=== PATIENT | male | born 1945 | race Caucasian/White ===

== ENCOUNTER → 2016-10-05 | Outpatient (CLI) | payer MEDICARE, OTHER ==
[~2016-10-05] MED LIST: ASP325T PO; ASP81TEC PO; ATOR40TA PO; ATR20T PO; BEE POLLEN PO; CETI5TAB6 PO; CPR500T PO; CQ10 PO; CRAN200C PO; CRAN400T PO; DOXY-233 PO; GARL400T13 PO; LISI20TA PO; MULT-608 PO; NFPRILOC40 PO
[2016-10-05 07:54] LABS: BASOPHILS % (AUTO) 0 % (0-10); EOSINOPHILS # (AUTO) 0.2 10^3/uL (0.0-0.3); EOSINOPHILS % (AUTO) 3 % (0-10); LYMPHOCYTES # (AUTO) 1.9 X 10^3 (1.0-4.0); LYMPHOCYTES % (AUTO) 21 % (12-44); MEAN CORPUSCULAR HEMOGLOBIN 29 PG (25-34); MEAN CORPUSCULAR HGB CONC 35 G/DL (32-36); MEAN CORPUSCULAR VOLUME 82 FL (80-99); MEAN PLATELET VOLUME 11.7 FL (7.4-10.4); MONOCYTES # (AUTO) 0.9 X 10^3 (0.0-1.0); MONOCYTES % (AUTO) 10 % (0-12); NEUTROPHILS % (AUTO) 66 % (42-75); PLATELET COUNT 205 10^3/uL (130-400); RED BLOOD COUNT 5.51 10^6/uL (4.35-5.85); RED CELL DISTRIBUTION WIDTH 13.7 % (10.0-14.5)
[2016-10-05 08:17] LABS: ALBUMIN 3.8 G/DL (3.2-4.5); BILIRUBIN,TOTAL 0.8 MG/DL (0.1-1.0); CALCIUM 8.9 MG/DL (8.5-10.1); CREATININE SERUM 1.48 MG/DL (0.60-1.30); POTASSIUM 4.2 MMOL/L (3.6-5.0); TOTAL PROTEIN 6.8 G/DL (6.4-8.2)
[2016-10-05 08:38] LABS: THYROID STIMULATING HORMONE 2.39 UIU/ML (0.35-4.94)
== END ==
LOC: LAB 07:42
PROVIDERS: ATTEND Family Medicine
DX: E78.5 Hyperlipidemia, unspecified (principal); E03.9 Hypothyroidism, unspecified; R53.83 Other fatigue; I25.10 Atherosclerotic heart disease of native coronary artery without angina pectoris
CPT/HCPCS: 36415; 80053; 80061; 84439; 84443; 85025

== ENCOUNTER → 2016-10-16 | Outpatient (CLI) | payer MEDICARE, OTHER ==
--- NOTE | 2016-10-16 15:53 | Diagnostic Imaging Report ---
Retroperitoneal ultrasound. INDICATION: R80.9. History of left nephrectomy for renal tumor. FINDINGS: The left kidney is absent with no mass at the nephrectomy bed. The right kidney is 12 cm in length. No hydronephrosis or focal lesion. The urinary bladder is not seen as it is empty. IMPRESSION: Unremarkable exam. Dictated by: Dictated on workstation # [id number]
== END ==
LOC: RAD 13:52
PROVIDERS: ATTEND Family Medicine
DX: R80.9 Proteinuria, unspecified (principal); Z90.5 Acquired absence of kidney
CPT/HCPCS: 76770

== ENCOUNTER → 2017-03-13 | Outpatient (CLI) | payer MEDICARE, OTHER ==
[2017-03-13 07:42] LABS: ALBUMIN 3.8 GM/DL (3.2-4.5); BILIRUBIN,TOTAL 0.9 MG/DL (0.1-1.0); CALCIUM 9.3 MG/DL (8.5-10.1); CREATININE SERUM 1.31 MG/DL (0.60-1.30)
== END ==
LOC: LAB 06:51
PROVIDERS: ATTEND Physician Assistant
DX: I10 Essential (primary) hypertension (principal); E78.2 Mixed hyperlipidemia; I44.4 Left anterior fascicular block; I34.0 Nonrheumatic mitral (valve) insufficiency
CPT/HCPCS: 36415; 80053; 80061

== ENCOUNTER 2017-06-10 05:39 | Outpatient (CLI) | payer MEDICARE, OTHER ==
[~2017-06-10] VITALS: Ht 188 cm; Wt 103.4 kg
[2017-06-10] MEDS ORDERED: ASPI-999 PO (13:30)
[2017-06-10] MEDS ORDERED: METO50TA2 PO (13:30)
[2017-06-10] MEDS ORDERED: AMLO10TA2 PO (13:30)
== END 2017-06-10 13:31 ==
LOC: PREOP 05:39
PROVIDERS: ATTEND Surgery
DX: Z01.818 Encounter for other preprocedural examination (principal); Z80.0 Family history of malignant neoplasm of digestive organs

== ENCOUNTER 2017-06-14 09:18 | Day surgery (SDC) | payer MEDICARE, OTHER ==
[~2017-06-14] VITALS: Ht 188 cm; Wt 103.4 kg
[~2017-06-14 09:18] MED LIST changes: +AMLO10TA2 PO; +ASPI-999 PO; +METO50TA15 PO
--- OUTSIDE RECORDS SUMMARY | 2017-06-14 09:22 | XMS REPORT ---
Author REENA Rizzo Organization [employer] Address Unknown Phone Unavailable Care Team Providers Care Senior Operations Manager Name Role Phone REENA LAUGHLIN CP Unavailable Allergies No Known Allergies Problems Problem Type Condition Code Onset Dates Condition Status Assessment Adjustment disorder with anxiety F43.22 Active Medications No Known Medications Procedures Procedure Coding System Code Date Psychotherapy, patient &/family, 30 minutes, established patient CPT-4 66529 January 19, 2016 Results No Known Results Summary Purpose [employer] Submission
--- OUTSIDE RECORDS SUMMARY | 2017-06-14 09:23 | XMS REPORT | Continuity of Care Document ---
Author Author [facility] Organization [facility] Address Unknown Phone Unavailable Allergies Active Description Code Type Severity Reaction Onset Reported/Identified Relationship to Patient Clinical Status Yes Adhesive Bandage [id number] Drug Allergy Unknown SORES 06/10/2017 Medications Problems Date Dx Coded Attending Type Code Diagnosis Diagnosed By 06/20/2012 Ot 211.3 06/20/2012 Ot 455.0 06/20/2012 Ot 562.10 06/20/2012 Ot V76.51 12/24/2014 Ot 786.09 12/24/2014 Ot 786.2 12/24/2014 Ot 789.09 12/24/2014 Ot V10.46 12/24/2014 Ot 789.00 12/24/2014 Ot 272.4 12/24/2014 Ot 401.9 12/24/2014 GINA GAVIRIA, HILARIO Foreman Ot 272.4 12/24/2014 GINA GAVIRIA, HILARIO Foreman Ot 401.9 12/24/2014 GINA GAVIRIA, HILARIO Foreman Ot 426.2 12/24/2014 GINA GAVIRIA, HILARIO Foreman Ot 429.9 12/24/2014 VINCENTNDER DO, MAUREEN S Ot 272.4 12/24/2014 FLORENTINER YAO TILLMANMAUREEN S Ot 401.9 12/24/2014 YAO ROBLES DOQUELINE S Ot V70.0 12/28/2014 COSENS DO, AUBREY L Ot 715.35 12/28/2014 COSENS DO, AUBREY L Ot 724.2 01/03/2015 COSENS DO, AUBREY L Ot 715.35 01/03/2015 COSENS DO, AUBREY L Ot 724.2 01/04/2015 COSENS DO, AUBREY L Ot 715.35 01/04/2015 COSENS DO, AUBREY L Ot 724.2 01/05/2015 Ot 786.09 01/05/2015 Ot 786.2 01/05/2015 Ot 789.09 01/05/2015 Ot V10.46 01/05/2015 Ot 789.00 01/05/2015 Ot 272.4 01/05/2015 Ot 401.9 01/05/2015 HILARIO FUENTES MD Ot 272.4 01/05/2015 GINA GAVIRIA, HILARIO Foreman Ot 401.9 01/05/2015 HILARIO FUENTES MD Ot 426.2 01/05/2015 HILARIO FUENTES MD Ot 429.9 01/05/2015 ORENDER DO, MAUREEN S Ot 272.4 01/05/2015 ORENDER DO, MAUREEN S Ot 401.9 01/05/2015 ORENDER DO, MAUREEN S Ot V70.0 01/05/2015 AUBREY AGUILAR DO Ot 715.35 01/05/2015 AUBREY AGUILAR DO Ot 724.2 01/05/2015 CINTHIA VALDEZ MD Ot 453.40 01/11/2015 CINTHIA VALDEZ MD Ot 724.02 01/12/2015 AUBREY AGUILAR DO Ot 715.35 01/12/2015 AUBREY AGUILAR DO Ot 724.2 01/12/2015 CINTHIA VALDEZ MD Ot 724.02 01/13/2015 AUBREY AGUILAR DO Ot 715.35 01/13/2015 AUBREY AGUILAR DO Ot 724.2 01/21/2015 CINTHIA VALDEZ MD Ot 453.40 01/27/2015 CINTHIA VALDEZ MD Ot 724.02 04/06/2015 CINTHIA VALDEZ MD Ot V57.1 PHYSICAL THERAPY NEC 04/06/2015 CINTHIA VALDEZ MD Ot V58.49 OTHER SPECIFIED AFTERCARE FOLLOWING SURG 04/11/2015 CINTHIA VALDEZ MD Ot V57.1 04/11/2015 CINTHIA VALDEZ MD, Ot V58.49 04/22/2015 CINTHIA VALDEZ MD Ot M54.5 LOW BACK PAIN 05/19/2015 HILARIO FUENTES MD Ot E78.2 05/19/2015 HILARIO FUENTES MD Ot I10 05/19/2015 HILARIO FUENTES MD Ot R07.89 05/19/2015 HILARIO FUENTES MD Ot R09.89 11/21/2015 COURTNEY GAVIRIA, CINTHIA Foreman Ot 724.02 SPINAL STENOSIS, LUMBAR REG, W/OUT NEURO 11/21/2015 HILARIO FUENTES MD Ot E78.2 MIXED HYPERLIPIDEMIA 11/21/2015 HILARIO FUENTES MD Ot I10 ESSENTIAL (PRIMARY) HYPERTENSION 11/21/2015 HILARIO FUENTES MD Ot R07.89 OTHER CHEST PAIN 11/21/2015 HILARIO FUENTES MD Ot R09.89 OTH SYMPTOMS AND SIGNS INVOLVING THE CIR 11/23/2015 HILARIO FUENTES MD Ot E78.2 MIXED HYPERLIPIDEMIA 11/23/2015 HILARIO FUENTES MD Ot I10 ESSENTIAL (PRIMARY) HYPERTENSION 11/23/2015 HILARIO FUENTES MD Ot 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 11/23/2015 HILARIO FUENTES MD Ot R07.89 OTHER CHEST PAIN 11/24/2015 HILARIO FUENTES MD Ot E78.2 MIXED HYPERLIPIDEMIA 11/24/2015 HILARIO FUENTES MD Ot I10 ESSENTIAL (PRIMARY) HYPERTENSION 11/24/2015 HILARIO FUENTES MD Ot 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 11/24/2015 HILARIO FUENTES MD Ot R07.89 OTHER CHEST PAIN 11/24/2015 HILARIO FUENTES MD Ot E78.2 MIXED HYPERLIPIDEMIA 11/24/2015 HILARIO FUENTES MD Ot I10 ESSENTIAL (PRIMARY) HYPERTENSION 11/24/2015 HILARIO FUENTES MD Ot 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 11/24/2015 HILARIO FUENTES MD Ot R07.89 OTHER CHEST PAIN 12/12/2015 HILARIO FUENTES MD Ot E78.2 MIXED HYPERLIPIDEMIA 12/12/2015 HILARIO FUENTES MD Ot I10 ESSENTIAL (PRIMARY) HYPERTENSION 12/12/2015 HILARIO FUENTES MD Ot 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 12/12/2015 HILARIO FUENTES MD Ot R07.89 OTHER CHEST PAIN 12/12/2015 HILARIO FUENTES MD Ot E78.2 MIXED HYPERLIPIDEMIA 12/12/2015 HILARIO FUENTES MD Ot I10 ESSENTIAL (PRIMARY) HYPERTENSION 12/12/2015 HILARIO FUENTES MD Ot 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 12/12/2015 GINA GAVIRIA, HILARIO Foreman Ot R07.89 OTHER CHEST PAIN 10/05/2016 ORENDER DO, MAUREEN S Ot E03.9 HYPOTHYROIDISM, UNSPECIFIED 10/05/2016 ORENDER DO, MAUREEN S Ot E78.5 HYPERLIPIDEMIA, UNSPECIFIED 10/08/2016 ORENDER DO, MAUREEN S Ot E03.9 HYPOTHYROIDISM, UNSPECIFIED 10/08/2016 ORENDER DO, MAUREEN S Ot E78.5 HYPERLIPIDEMIA, UNSPECIFIED 10/08/2016 ORENDER DO, MAUREEN S Ot I25.10 ATHSCL HEART DISEASE OF [place] CORONARY 10/08/2016 ORENDER DO, MAUREEN S Ot R53.83 OTHER FATIGUE 10/16/2016 ORENDER DO, MAUREEN S Ot E03.9 HYPOTHYROIDISM, UNSPECIFIED 10/16/2016 ORENDER DO, MAUREEN S Ot E78.5 HYPERLIPIDEMIA, UNSPECIFIED 10/16/2016 ORENDER DO, MAUREEN S Ot I25.10 ATHSCL HEART DISEASE OF [place] CORONARY 10/16/2016 ORENDER DO, MAUREEN S Ot R53.83 OTHER FATIGUE 10/16/2016 ORENDER DO, MAUREEN S Ot E03.9 HYPOTHYROIDISM, UNSPECIFIED 10/16/2016 ORENDER DO, MAUREEN S Ot E78.5 HYPERLIPIDEMIA, UNSPECIFIED 10/16/2016 ORENDER DO, MAUREEN S Ot I25.10 ATHSCL HEART DISEASE OF [place] CORONARY 10/16/2016 ORENDER DO, MAUREEN S Ot R53.83 OTHER FATIGUE 10/29/2016 ORENDER DO, MAUREEN S Ot E03.9 HYPOTHYROIDISM, UNSPECIFIED 10/29/2016 ORENDER DO, MAUREEN S Ot E78.5 HYPERLIPIDEMIA, UNSPECIFIED 10/29/2016 ORENDER DO, MAUREEN S Ot I25.10 ATHSCL HEART DISEASE OF [place] CORONARY 10/29/2016 ORENDER DO, MAUREEN S Ot R53.83 OTHER FATIGUE 11/06/2016 ORENDER DO, MAUREEN S Ot R80.9 PROTEINURIA, UNSPECIFIED 11/06/2016 ORENDER DO, MAUREEN S Ot Z90.5 ACQUIRED ABSENCE OF KIDNEY 02/14/2017 ORENDER DO, MAUREEN S Ot E03.9 HYPOTHYROIDISM, UNSPECIFIED 02/14/2017 ORENDER DO, MAUREEN S Ot E78.5 HYPERLIPIDEMIA, UNSPECIFIED 02/14/2017 ORENDER DO, MAUREEN S Ot I25.10 ATHSCL HEART DISEASE OF [place] CORONARY 02/14/2017 ORENDER DO, MAUREEN S Ot R53.83 OTHER FATIGUE 02/14/2017 ORENDER DO, MAUREEN S Ot R80.9 PROTEINURIA, UNSPECIFIED 02/14/2017 ORENDER DO, MAUREEN S Ot Z90.5 ACQUIRED ABSENCE OF KIDNEY 03/13/2017 ORENDER DO, MAUREEN S Ot E03.9 HYPOTHYROIDISM, UNSPECIFIED 03/13/2017 ORENDER DO, MAUREEN S Ot E78.5 HYPERLIPIDEMIA, UNSPECIFIED 03/13/2017 ORENDER DO, MAUREEN S Ot I25.10 ATHSCL HEART DISEASE OF [place] CORONARY 03/13/2017 ORENDER DO, MAUREEN S Ot R53.83 OTHER FATIGUE 03/13/2017 ORENDER DO, MAUREEN S Ot R80.9 PROTEINURIA, UNSPECIFIED 03/13/2017 ORENDER DO, MAUREEN S Ot Z90.5 ACQUIRED ABSENCE OF KIDNEY 03/13/2017 RON RICHARDSON Ot I10 ESSENTIAL (PRIMARY) HYPERTENSION 03/14/2017 RON RICHARDSON Ot E78.2 MIXED HYPERLIPIDEMIA 03/14/2017 RON RICHARDSON Ot I10 ESSENTIAL (PRIMARY) HYPERTENSION 03/14/2017 RON RICHARDSON Ot I34.0 NONRHEUMATIC MITRAL (VALVE) INSUFFICIENC 03/14/2017 RON RICHARDSON Ot 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 04/03/2017 RON RICHARDSON Ot E78.2 MIXED HYPERLIPIDEMIA 04/03/2017 RON RICHARDSON Ot I10 ESSENTIAL (PRIMARY) HYPERTENSION 04/03/2017 RON RICHARDSON Ot I34.0 NONRHEUMATIC MITRAL (VALVE) INSUFFICIENC 04/03/2017 RON RICHARDSON Ot 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 04/23/2017 VINCENTNDER DO, MAUREEN S Ot R80.9 PROTEINURIA, UNSPECIFIED 04/23/2017 ORENDER DO, MAUREEN S Ot Z90.5 ACQUIRED ABSENCE OF KIDNEY 06/10/2017 SEAN KITCHEN MD, Ot Z01.818 ENCOUNTER FOR OTHER PREPROCEDURAL EXAMIN 06/10/2017 SEAN KITCHEN MD, Ot Z80.0 FAMILY HISTORY OF MALIGNANT NEOPLASM OF 06/11/2017 SEAN KITCHEN MD, Ot Z01.818 ENCOUNTER FOR OTHER PREPROCEDURAL EXAMIN 06/11/2017 SEAN KITCHEN MD, Ot Z80.0 FAMILY HISTORY OF MALIGNANT NEOPLASM OF 06/12/2017 ORENDER DO, MAUREEN S Ot E03.9 HYPOTHYROIDISM, UNSPECIFIED 06/12/2017 ORENDER DO, MAUREEN S Ot E78.5 HYPERLIPIDEMIA, UNSPECIFIED 06/12/2017 ORENDER DO, MAUREEN S Ot I25.10 ATHSCL HEART DISEASE OF [place] CORONARY 06/12/2017 VINCENTNDER DO, MAUREEN S Ot R53.83 OTHER FATIGUE 06/12/2017 ORENDER DO, MAUREEN S Ot R80.9 PROTEINURIA, UNSPECIFIED 06/12/2017 ORENDER DO, MAUREEN S Ot Z90.5 ACQUIRED ABSENCE OF KIDNEY 06/12/2017 RON RICHARDSON Ot E78.2 MIXED HYPERLIPIDEMIA 06/12/2017 RON RICHARDSON Ot I10 ESSENTIAL (PRIMARY) HYPERTENSION 06/12/2017 RON RICHARDSON Ot I34.0 NONRHEUMATIC MITRAL (VALVE) INSUFFICIENC 06/12/2017 RON RICHARDSON Ot 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 Procedures Results Test Result Range Complete blood count (CBC) with automated white blood cell (WBC) differential - 10/05/16 07:51 Blood leukocytes automated count (number/volume) 9.0 10*3/ uL 4.3-11.0 Blood erythrocytes automated count (number/volume) 5.51 10*6 /uL 4.35-5.85 Venous blood hemoglobin measurement (mass/volume) 15.7 g/dL 13.3-17.7 Blood hematocrit (volume fraction) 45 % 40-54 Automated erythrocyte mean corpuscular volume 82 [foz_us] 80-99 Automated erythrocyte mean corpuscular hemoglobin (mass per erythrocyte) 29 pg 25-34 Automated erythrocyte mean corpuscular hemoglobin concentration measurement ( mass/volume) 35 g/dL 32-36 Automated erythrocyte distribution width ratio 13.7 % 10.0-14.5 Automated blood platelet count (count/volume) 205 10*3/uL 130-400 Automated blood platelet mean volume measurement 11.7 [foz_ us] 7.4-10.4 Automated blood neutrophils/100 leukocytes 66 % 42-75 Automated blood lymphocytes/100 leukocytes 21 % 12-44 Blood monocytes/100 leukocytes 10 % 0-12 Automated blood eosinophils/100 leukocytes 3 % 0-10 Automated blood basophils/100 leukocytes 0 % 0-10 Blood neutrophils automated count (number/volume) 6.0 10*3 1.8-7.8 Blood lymphocytes automated count (number/volume) 1.9 10*3 1.0-4.0 Blood monocytes automated count (number/volume) 0.9 10*3 0.0-1.0 Automated eosinophil count 0.2 10*3/uL 0.0-0.3 Automated blood basophil count (count/volume) 0.0 10*3/uL 0.0-0.1 Comprehensive metabolic panel - 10/05/16 07:51 Serum or plasma sodium measurement (moles/volume) 139 mmol/ L 135-145 Serum or plasma potassium measurement (moles/volume) 4.2 mmol/L 3.6-5.0 Serum or plasma chloride measurement (moles/volume) 109 mmol /L 98-107 Carbon dioxide 23 mmol/L 21-32 Serum or plasma anion gap determination (moles/volume) 7 mmol/L 5-14 Serum or plasma urea nitrogen measurement (mass/volume) 14 mg/dL 7-18 Serum or plasma creatinine measurement (mass/volume) 1.48 mg /dL 0.60-1.30 Serum or plasma urea nitrogen/creatinine mass ratio 9 NRG Serum or plasma creatinine measurement with calculation of estimated glomerular filtration rate 47 NRG Serum or plasma glucose measurement (mass/volume) 96 mg/dL 70-105 Serum or plasma calcium measurement (mass/volume) 8.9 mg/dL 8.5-10.1 Serum or plasma total bilirubin measurement (mass/volume) 0.8 mg/dL 0.1-1.0 Serum or plasma alkaline phosphatase measurement (enzymatic activity/volume) 93 U/L 40-136 Serum or plasma aspartate aminotransferase measurement (enzymatic activity/ volume) 19 U/L 5-34 Serum or plasma alanine aminotransferase measurement (enzymatic activity/volume ) 27 U/L 0-55 Serum or plasma protein measurement (mass/volume) 6.8 g/dL 6.4-8.2 Serum or plasma albumin measurement (mass/volume) 3.8 g/dL 3.2-4.5 Lipid 1996 panel - 10/05/16 07:51 Serum or plasma triglyceride measurement (mass/volume) 203 mg/dL <150 Serum or plasma cholesterol measurement (mass/volume) 205 mg /dL < 200 Serum or plasma cholesterol in HDL measurement (mass/volume) 30 mg/dL 40-60 Cholesterol in LDL [mass/volume] in serum or plasma by direct assay 135 mg/dL 1-129 Serum or plasma cholesterol in VLDL measurement (mass/volume) 41 mg/dL 5-40 THYROID STIMULATING HORMONE - 10/05/16 07:51 THYROID STIMULATING HORMONE 2.39 u[iU]/mL 0.35-4.94 Serum or plasma thyroxine (T4) free measurement (mass/volume) - 10/05/16 07:51 Serum or plasma thyroxine (T4) free measurement (mass/volume) 0.97 ng/dL 0.70-1.48 Comprehensive metabolic panel - 03/13/17 07:09 Serum or plasma sodium measurement (moles/volume) 141 mmol/ L 135-145 Serum or plasma potassium measurement (moles/volume) 4.0 mmol/L 3.6-5.0 Serum or plasma chloride measurement (moles/volume) 109 mmol /L 98-107 Carbon dioxide 21 mmol/L 21-32 Serum or plasma anion gap determination (moles/volume) 11 mmol/L 5-14 Serum or plasma urea nitrogen measurement (mass/volume) 21 mg/dL 7-18 Serum or plasma creatinine measurement (mass/volume) 1.31 mg /dL 0.60-1.30 Serum or plasma urea nitrogen/creatinine mass ratio 16 NRG Serum or plasma creatinine measurement with calculation of estimated glomerular filtration rate 54 NRG Serum or plasma glucose measurement (mass/volume) 91 mg/dL 70-105 Serum or plasma calcium measurement (mass/volume) 9.3 mg/dL 8.5-10.1 Serum or plasma total bilirubin measurement (mass/volume) 0.9 mg/dL 0.1-1.0 Serum or plasma alkaline phosphatase measurement (enzymatic activity/volume) 97 U/L 40-136 Serum or plasma aspartate aminotransferase measurement (enzymatic activity/ volume) 22 U/L 5-34 Serum or plasma alanine aminotransferase measurement (enzymatic activity/volume ) 25 U/L 0-55 Serum or plasma protein measurement (mass/volume) 7.0 g/dL 6.4-8.2 Serum or plasma albumin measurement (mass/volume) 3.8 g/dL 3.2-4.5 Lipid 1996 panel - 03/13/17 07:09 Serum or plasma triglyceride measurement (mass/volume) 164 mg/dL <150 Serum or plasma cholesterol measurement (mass/volume) 195 mg /dL < 200 Serum or plasma cholesterol in HDL measurement (mass/volume) 36 mg/dL 40-60 Cholesterol in LDL [mass/volume] in serum or plasma by direct assay 138 mg/dL 1-129 Serum or plasma cholesterol in VLDL measurement (mass/volume) 33 mg/dL 5-40 Encounters ACCT No. Visit Date/Time Discharge Status Pt. Type Provider Facility Loc./Unit Complaint [id number] 06/10/2017 05:39:00 2016 13:31:00 DIS Outpatient SEAN KITCHEN MD [facility] PREOP COLO [id number] 03/13/2017 06:51:00 2016 23:59:59 CLS Outpatient RON RICHARDSON [facility] LAB I10 E78.2 I44.4 [id number] 10/16/2016 13:52:00 2016 23:59:59 CLS Outpatient MAUREEN ROBLES DO S [facility] RAD R80.9 [id number] 10/05/2016 07:42:00 2016 23:59:59 CLS Outpatient MAUREEN ROBLES DO S [facility] LAB HYPERLIPIDEMIA,HTN,FATIGUE [id number] 11/23/2015 08:06:00 2015 23:59:59 CLS Outpatient HILARIO FUENTES MD [facility] CARD [id number] 11/21/2015 14:37:00 2015 23:59:59 CLS Outpatient HILARIO FUENTES MD [facility] CARD [id number] 05/03/2015 08:24:00 2014 23:59:59 CLS Outpatient HILARIO FUENTES MD [facility] LAB [id number] 04/14/2015 08:01:00 2014 23:59:59 CLS [id number] 04/06/2015 16:15:00 2014 00:01:00 DIS Outpatient [facility] [id number] 01/26/2015 12:15:00 2014 23:59:59 CLS Preadmit AUBREY AGUILAR DO [facility] REHAB [id number] 01/07/2015 08:39:00 2014 23:59:59 CLS Outpatient CINTHIA VALDEZ MD [facility] RAD [id number] 01/03/2015 16:53:00 2014 23:59:59 CLS Outpatient CINTHIA VALDEZ MD [facility] RAD [id number] 12/24/2014 08:19:00 2014 23:59:59 CLS Outpatient AUBREY AGUILAR DO [facility] RAD [id number] 11/13/2013 09:08:00 2013 23:59:59 CLS Outpatient MAUREEN ROBLES DO [facility] LAB [id number] 11/13/2013 09:04:00 2013 23:59:59 CLS Outpatient HILARIO FUENTES MD [facility] CARD [id number] 06/14/2017 12:45:00 PEN Preadmit SEAN KITCHEN MD [facility] ENDO FAMILY HX COLON CA [id number] 07/18/2012 05:59:00 Document Registration [id number] 07/11/2012 09:12:00 Document Registration [id number] 07/03/2012 15:28:00 Document Registration [id number] 06/20/2012 10:28:00 Document Registration
[2017-06-14] MEDS ORDERED: NS IV 500 ML 500 ML IV PRN (09:31)
[2017-06-14] MEDS ORDERED: NS IV 500 ML 500 ML ONE (09:35)
[2017-06-14 09:44] VITALS: BP 125/65
[2017-06-14] MEDS ORDERED: LIDOCAINE JELLY 2% (XYLOCAINE) 5 ML TUBE MM PRN (09:45)
[2017-06-14] MEDS: MIDAZOLAM 2 MG/2 ML (VERSED) VIAL IVP PRN ×2 (11:14→11:38)
--- NOTE | 2017-06-14 11:19 | Conscious Sedation/ASA ---
Conscious Sedation Pre-Proced Time Reviewed: 10:30 ASA Class: 2 Airway Mallampati Classification: ([place] appropriate class) I. II. III, IV Lungs Heart ASA score ASA 1: a normal healthy patient ASA 2: a patient with a mild systemic disease (mid diabetes, controlled hypertension, obesity ASA 3: a patient with a severe systemic disease that limits activity (angina , COPD, prior Myocardial infarction) ASA 4: a patient with an incapacitating disease that is a constant threat to life (CHF, renal failure) ASA 5: a moribund patient not expected to survive 24 hrs. (ruptured aneurysm) ASA 6: a declared brain patient whose organs are being harvested. For emergent operations, add the letter E after the classification Grade 2 Sedation Plan: Analgesia, Amnesia, Plan communicated to team members, Discussed options with patient/fam, Discussed risks with patient/fam Note The patient is an appropriate candidate to undergo the planned procedure, sedation, and anesthesia. The patient immediately re-assessed prior to indication. SEAN KITCHEN MD Jun 14, 2017 11:19
--- NOTE | 2017-06-14 11:21 | Progress Note-Pre Operative ---
Pre-Operative Progress Note H&P Reviewed The H&P was reviewed, patient examined and no changes noted. Date Seen by Provider: Jun 14, 2017 Time Seen by Provider: 10:30 Date H&P Reviewed: Jun 14, 2017 Time H&P Reviewed: 10:30 Pre-Operative Diagnosis: hx colon polyp, family hx colon ca SEAN KITCHEN MD Jun 14, 2017 11:21
[2017-06-14] MEDS ORDERED: HYDROcodone/APAP 5 MG/325 MG (LORTAB) TAB PO PRN ×2 (11:30)
[2017-06-14] MEDS ORDERED: ONDANSETRON 4 MG/2 ML (SDV) Z0FRAN IV PRN ×2 (11:30)
[2017-06-14] MEDS ORDERED: ACETAMINOPHEN 325 MG TABLET/CAPLET (TYLENOL) PO PRN ×2 (11:30)
[2017-06-14] MEDS ORDERED: morphine INJ 10 MG/ML 1ML (SYR OR VIAL) IV PRN ×2 (11:30)
[2017-06-14] MEDS: fentaNYL INJECTION 100 MCG/2 ML AMP IVP PRN ×2 (11:39→11:47)
--- NOTE | 2017-06-14 11:59 | Progress Note-Post Operative ---
Post-Operative Progess Note Surgeon (s)/Turpentine Distiller (s) Surgeon SEAN KITCHEN MD Turpentine Distiller: none Pre-Operative Diagnosis hx colon polyp, family hx colon ca Post-Operative Diagnosis mild sigmoid diverticulosis Procedure & Operative Findings Date of Procedure 06/14/17 Procedure Performed/Findings Colonoscopy. Anesthesia Type CS Estimated Blood Loss Estimated blood loss (mL): minimal Specimens/Packing Specimens Removed none SEAN KITCHEN MD Jun 14, 2017 11:59 am
--- NOTE | 2017-06-14 12:00 | Discharge Inst-Surgical ---
D/C Lap Instructions-FIDELINA Follow Up 5 years Activity as tolerated High Fiber Diet 25g or more per day Avoid Alcohol, Caffeine, Spicy [place] and Acid foods. Drink 64 fluid oz or more of fluids per day. Symptoms to Report: Fever over 101 degree F, Nausea/Vomiting If any problems/questions: Contact your physician or go to Emergency Room SEAN KITCHEN MD Jun 14, 2017 12:00 pm
[2017-06-14 12:15] VITALS: BP 124/67
[2017-06-14 12:45] VITALS: BP 110/72
[2017-06-14 13:12] VITALS: BP 110/72
--- NOTE | 2017-06-14 19:25 | OPERATIVE REPORT ---
DATE OF SERVICE: ATTENDING PRIMARY CARE PHYSICIAN: Tracey Bailey D.O. PREOPERATIVE DIAGNOSES: History of colon polyp, family history of colon cancer. POSTOPERATIVE DIAGNOSIS: Mild sigmoid diverticulosis. PROCEDURE: Colonoscopy. SURGEON: Sean Kitchen M.D. ANESTHESIA: Conscious sedation. ESTIMATED BLOOD LOSS: Minimal. FINDINGS: No significant hemorrhoids. Prostate gland was palpable and appeared normal. There was a mild sigmoid diverticulosis with no mucosal inflammatory changes. The remainder of the colon was normal. DISPOSITION: The patient tolerated the procedure well. INDICATIONS FOR PROCEDURE: The patient is a 72-year-old male in need of a followup colonoscopy. This gentleman's last colonoscopy was approximately 5 years ago and at that time a benign polyp was identified. He also does have a family history of colon cancer with his sister having the disease. At this time, he is doing well and does not report any major issues with diarrhea nor constipation as well as no red blood per rectum nor any dark tarry stools. DESCRIPTION OF PROCEDURE: The patient was brought to the endoscopy suite and laid in the left lateral decubitus position. After adequate IV pain and sedating medications and conscious sedation anesthesia, a digital rectal examination was performed. No significant hemorrhoids were identified. Normal sphincter tone was felt and there were no palpable masses. Prostate gland was palpable and appeared normal. The endoscope was then intubated to the anus and rectum and gently insufflated. The endoscope was then advanced to the valves of [place] of the rectum with no polyps or any neoplasms identified. The endoscope was then advanced through the sigmoid colon where mild sigmoid diverticulosis identified. There were no mucosal inflammatory change to indicate any active diverticulitis. The endoscope was then advanced to the remainder of the descending, transverse, ascending colon and cecum. These segments were normal. There were no polyps or any neoplasms identified throughout the colon or rectum. The endoscope was then slowly withdrawn while taking a second look and suctioning residual air with no additional findings. The patient tolerated the procedure well. We will recommend continued medical management with a high fiber diet with at least 30 grams of fiber per day as well as at least 64 fluid ounces of water daily to promote soft stools on a daily basis. We will recommend a followup colonoscopy in 5 years. Job ID: [id number] DocumentID: [id number] Dictated Date: 06/14/2017 12:04:11 Swimming Pool Cleaner Date: 06/14/2017 19:24:56 Dictated By: SEAN KITCHEN MD
== END 2017-06-14 13:12 | disposition home or self-care (01) ==
LOC: ENDO 09:18
PROVIDERS: ATTEND Surgery
DX: Z12.11 Encounter for screening for malignant neoplasm of colon (principal); K57.30 Diverticulosis of large intestine without perforation or abscess without bleeding; Z86.010 Personal history of colon polyps; Z80.0 Family history of malignant neoplasm of digestive organs; I10 Essential (primary) hypertension; E78.5 Hyperlipidemia, unspecified; K21.9 Gastro-esophageal reflux disease without esophagitis; C61 Malignant neoplasm of prostate; Z79.82 Long term (current) use of aspirin; Z79.899 Other long term (current) drug therapy

== ENCOUNTER → 2017-06-27 | Outpatient (CLI) | payer MEDICARE, OTHER ==
[2017-06-27 07:12] LABS: ALBUMIN 3.8 GM/DL (3.2-4.5); BILIRUBIN,DIRECT 0.3 MG/DL (0.0-0.3); BILIRUBIN,INDIRECT 0.5 MG/DL; BILIRUBIN,TOTAL 0.8 MG/DL (0.1-1.0)
== END ==
LOC: LAB 06:26
PROVIDERS: ATTEND Physician Assistant
DX: E78.2 Mixed hyperlipidemia (principal)
CPT/HCPCS: 36415; 80061; 80076

== ENCOUNTER → 2017-09-09 | Outpatient (CLI) | payer MEDICARE, OTHER ==
[2017-09-09 08:03] LABS: BILIRUBIN,TOTAL 0.5 MG/DL (0.1-1.0); CALCIUM 9.5 MG/DL (8.5-10.1); CREATININE SERUM 1.58 MG/DL (0.60-1.30); POTASSIUM 4.2 MMOL/L (3.6-5.0); TOTAL PROTEIN 6.9 GM/DL (6.4-8.2)
== END ==
LOC: LAB 07:30
PROVIDERS: ATTEND Physician Assistant
DX: E78.5 Hyperlipidemia, unspecified (principal)
CPT/HCPCS: 36415; 80053; 80061

== ENCOUNTER 2017-11-29 19:58 | Outpatient (CLI) | payer MEDICARE, OTHER | END 2017-11-30 04:47 | disposition home or self-care (01) | LOC: SLEEP 19:58 | PROVIDERS: ATTEND Internal Medicine Cardiovascular Disease | DX: G47.61 Periodic limb movement disorder (principal); R06.83 Snoring | CPT/HCPCS: 95810 ==

== ENCOUNTER → 2018-01-29 | Outpatient (CLI) | payer MEDICARE, OTHER ==
--- NOTE | 2018-01-29 12:21 | Diagnostic Imaging Report ---
PROCEDURE: CT chest without contrast. TECHNIQUE: Multiple contiguous axial images were obtained through the chest without the use of intravenous contrast. INDICATION: Pulmonary nodules. FINDINGS: There are no previous CT chest examinations available for comparison. The CT abdomen/pelvis exam of 07/11/2012 did show a 1.5 cm calcified nodule in the right lung base. This was felt to represent a granuloma. That finding is again evident on this exam and no different in size or appearance. No other parenchymal lung mass is identified. There are vague areas of increased density in both lung bases. These seem similar to the prior study and are most likely chronic in nature. There are also similar areas of abnormal density in the right middle lobe and right perihilar region. I suspect these are long-standing in nature as well. There is no confluent pneumonia identified, and there is no sign of a pleural effusion. The heart size is within normal limits. There are coronary artery calcifications evident. The aorta is not abnormally dilated. There are calcified lymph nodes in the right hilum and subcarinal region. There is no mediastinal or hilar adenopathy. There is a 1.4 x 1.5 cm area of calcification in the left lobe of the thyroid. There also appear to be a few low-density nodules in each lobe of the thyroid. Ultrasound would be recommended to better characterize these findings. The bone windows show no sign of a fracture or of a destructive lesion. There has been a prior kyphoplasty procedure of L1. The sections through the upper abdomen fail to show any evidence for an acute abnormality. As noted on the previous CT exam, the left kidney is surgically absent. IMPRESSION: 1. The vague areas of increased density in the lung bases and the right middle lobe and right perihilar region are more likely due to chronic pulmonary disease than to an acute abnormality. Clinical followup is recommended. 2. The calcified granuloma in the right lung base seen previously is again evident and unchanged. No other parenchymal lung mass is noted. 3. Ultrasound would be recommended for further evaluation of the thyroid gland. 4. The heart is not enlarged. There are coronary artery calcifications. 5. The left kidney is surgically absent. Dictated by: Dictated on workstation # [id number]
== END ==
LOC: RAD 09:56
PROVIDERS: ATTEND Nurse Practitioner Family
DX: J84.10 Pulmonary fibrosis, unspecified (principal); I25.10 Atherosclerotic heart disease of native coronary artery without angina pectoris
CPT/HCPCS: 71250

== ENCOUNTER → 2018-02-03 | Outpatient (CLI) | payer MEDICARE, OTHER ==
--- NOTE | 2018-02-03 09:52 | Diagnostic Imaging Report ---
PROCEDURE: US Thyroid. TECHNIQUE: Multiple real-time grayscale images were obtained of the thyroid in various projections. INDICATION: Thyroid nodules noted on recent CT. COMPARISON: Correlation is made with CT chest from 01/29/2018. FINDINGS: Right lobe of the thyroid measures 5.3 x 1.9 x 1.5 cm and left lobe measures 5.9 x 1.8 x 1.9 cm. The left lobe does contain a calcified mass measuring 2.1 x 1.2 x 1.3 cm. Calcifications are large and corresponding with the CT abnormality. Heterogeneous nodule in lower pole left lobe is also seen measuring 1.8 x 1.1 x 1.0 cm. Right lobe contains two hypoechoic nodules, largest lower pole 1.2 x 0.6 x 0.8 cm. IMPRESSION: Bilateral thyroid nodules, largest appears to be calcified in the left lobe corresponding with CT abnormality. This most likely represents calcified adenoma and multinodular goiter. Followup ultrasound in six months could be performed to confirm stability. Dictated by: Dictated on workstation # [id number]
== END ==
LOC: RAD 08:04
PROVIDERS: ATTEND Nurse Practitioner Family
DX: E04.2 Nontoxic multinodular goiter (principal); J44.9 Chronic obstructive pulmonary disease, unspecified; I10 Essential (primary) hypertension; K21.9 Gastro-esophageal reflux disease without esophagitis; E78.00 Pure hypercholesterolemia, unspecified; J30.9 Allergic rhinitis, unspecified
CPT/HCPCS: 76536

== ENCOUNTER → 2018-02-17 | Outpatient (CLI) | payer MEDICARE, OTHER ==
[~2018-02-17] MED LIST changes: +RT-ALBUTEROL SULF 2.5 MG/3 ML PRE-MIX VIAL INH ONE
== END ==
LOC: RT 08:40
PROVIDERS: ATTEND Nurse Practitioner Family
DX: R06.00 Dyspnea, unspecified (principal); R06.2 Wheezing; J44.9 Chronic obstructive pulmonary disease, unspecified
CPT/HCPCS: 94060; 94726; 94729

== ENCOUNTER → 2018-03-28 | Outpatient (CLI) | payer MEDICARE, OTHER ==
[~2018-03-28] MED LIST changes: -AMLO10TA2 PO; +AMLO10TA6 PO; -RT-ALBUTEROL SULF 2.5 MG/3 ML PRE-MIX VIAL INH ONE
[2018-03-28 07:36] LABS: BILIRUBIN,TOTAL 0.9 MG/DL (0.1-1.0); CALCIUM 9.4 MG/DL (8.5-10.1); CREATININE SERUM 1.71 MG/DL (0.60-1.30); POTASSIUM 4.3 MMOL/L (3.6-5.0); TOTAL PROTEIN 7.1 GM/DL (6.4-8.2)
== END ==
LOC: LAB 06:59
PROVIDERS: ATTEND Internal Medicine Cardiovascular Disease
DX: I10 Essential (primary) hypertension (principal); R09.89 Other specified symptoms and signs involving the circulatory and respiratory systems; R07.89 Other chest pain; I44.4 Left anterior fascicular block; I34.0 Nonrheumatic mitral (valve) insufficiency; C61 Malignant neoplasm of prostate
CPT/HCPCS: 36415; 80053; 80061

== ENCOUNTER 2018-06-08 14:54 | Emergency (ER) | payer MEDICARE, OTHER ==
[~2018-06-08] VITALS: Ht 188 cm; Wt 113.4 kg
--- OUTSIDE RECORDS SUMMARY | 2018-06-08 15:00 | XMS REPORT | Continuity of Care Document ---
Author Author [facility] Organization [facility] Address Unknown Phone Unavailable Allergies Active Description Code Type Severity Reaction Onset Reported/Identified Relationship to Patient Clinical Status Yes Adhesive Bandage [id number] Drug Allergy Unknown SORES 06/10/2017 Medications There is no data. Problems Date Dx Coded Attending Type Code [...] GINA GAVIRIA, HILARIO Foreman Ot 429.9 12/24/2014 ORENDER DO, TRACEY S Ot 272.4 12/24/2014 ORENDER DO, TRACEY S Ot 401.9 12/24/2014 VINCENTNDER DO, TRACEY S Ot V70.0 12/28/2014 COSENS DO, AUBREY [...] 01/05/2015 Ot 272.4 01/05/2015 Ot 401.9 01/05/2015 GINA GAVIRIA, HILARIO Foreman Ot 272.4 01/05/2015 GINA GAVIRIA, HILARIO Foreman Ot 401.9 01/05/2015 HILARIO FUENTES MD Ot 426.2 01/05/2015 HILARIO FUENTES MD Ot 429.9 01/05/2015 ORENDER DO, TRACEY S Ot 272.4 01/05/2015 ORENDER DO, TRACEY S Ot 401.9 01/05/2015 ORENDER DO, TRACEY S Ot V70.0 01/05/2015 AUBREY AGUILAR DO [...] VALDEZ MD Ot 453.40 01/27/2015 CINTHIA VALDEZ MD, Ot 724.02 04/06/2015 CINTHIA VALDEZ MD Ot [...] PAIN 11/21/2015 HILARIO FUENTES MD Ot R09.89 OT SYMPTOMS AND SIGNS INVOLVING THE CIR 11/23/2015 [...] R07.89 OTHER CHEST PAIN 10/05/2016 ORENDER DO, TRACEY S Ot E03.9 HYPOTHYROIDISM, UNSPECIFIED 10/05/2016 ORENDER DO, TRACEY S Ot E78.5 HYPERLIPIDEMIA, UNSPECIFIED 10/08/2016 ORENDER DO, TRACEY S Ot E03.9 HYPOTHYROIDISM, UNSPECIFIED 10/08/2016 ORENDER DO, TRACEY S Ot E78.5 HYPERLIPIDEMIA, UNSPECIFIED 10/08/2016 ORENDER DO, TRACEY S Ot I25.10 ATHSCL HEART DISEASE OF [place] CORONARY 10/08/2016 ORENDER DO, TRACEY S Ot R53.83 OTHER FATIGUE 10/16/2016 ORENDER DO, TRACEY S Ot E03.9 HYPOTHYROIDISM, UNSPECIFIED 10/16/2016 ORENDER DO, TRACEY S Ot E78.5 HYPERLIPIDEMIA, UNSPECIFIED 10/16/2016 ORENDER DO, TRACEY S Ot I25.10 ATHSCL HEART DISEASE OF [place] CORONARY 10/16/2016 ORENDER DO, TRACEY S Ot R53.83 OTHER FATIGUE 10/16/2016 ORENDER DO, TRACEY S Ot E03.9 HYPOTHYROIDISM, UNSPECIFIED 10/16/2016 ORENDER DO, TRACEY S Ot E78.5 HYPERLIPIDEMIA, UNSPECIFIED 10/16/2016 ORENDER DO, TRACEY S Ot I25.10 ATHSCL HEART DISEASE OF [place] CORONARY 10/16/2016 ORENDER DO, TRACEY S Ot R53.83 OTHER FATIGUE 10/29/2016 ORENDER DO, TRACEY S Ot E03.9 HYPOTHYROIDISM, UNSPECIFIED 10/29/2016 ORENDER DO, TRACEY S Ot E78.5 HYPERLIPIDEMIA, UNSPECIFIED 10/29/2016 ORENDER DO, TRACEY S Ot I25.10 ATHSCL HEART DISEASE OF [place] CORONARY 10/29/2016 ORENDER DO, TRACEY S Ot R53.83 OTHER FATIGUE 11/06/2016 ORENDER DO, TRACEY S Ot R80.9 PROTEINURIA, UNSPECIFIED 11/06/2016 ORENDER DO, TRACEY S Ot Z90.5 ACQUIRED ABSENCE OF KIDNEY 02/14/2017 ORENDER DO, TRACEY S Ot E03.9 HYPOTHYROIDISM, UNSPECIFIED 02/14/2017 ORENDER DO, TRACEY S Ot E78.5 HYPERLIPIDEMIA, UNSPECIFIED 02/14/2017 ORENDER DO, TRACEY S Ot I25.10 ATHSCL HEART DISEASE OF [place] CORONARY 02/14/2017 ORENDER DO, TRACEY S Ot R53.83 OTHER FATIGUE 02/14/2017 ORENDER DO, TRACEY S Ot R80.9 PROTEINURIA, UNSPECIFIED 02/14/2017 ORENDER DO, TRACEY S Ot Z90.5 ACQUIRED ABSENCE OF KIDNEY 03/13/2017 ORENDER DO, TRACEY S Ot E03.9 HYPOTHYROIDISM, UNSPECIFIED 03/13/2017 ORENDER DO, TRACEY S Ot E78.5 HYPERLIPIDEMIA, UNSPECIFIED 03/13/2017 ORENDER DO, TRACEY S Ot I25.10 ATHSCL HEART DISEASE OF [place] CORONARY 03/13/2017 ORENDER DO, TRACEY S Ot R53.83 OTHER FATIGUE 03/13/2017 ORENDER DO, TRACEY S Ot R80.9 PROTEINURIA, UNSPECIFIED 03/13/2017 ORENDER DO, TRACEY S Ot Z90.5 ACQUIRED ABSENCE OF KIDNEY [...] Ot 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 04/23/2017 ORENDER DO, TRACEY S Ot R80.9 PROTEINURIA, UNSPECIFIED 04/23/2017 ORENDER DO, TRACEY S Ot Z90.5 ACQUIRED ABSENCE OF KIDNEY 06/10/2017 SEAN KITCHEN MD Ot Z01.818 ENCOUNTER FOR OTHER PREPROCEDURAL EXAMIN 06/10/2017 SEAN KITCHEN MD Ot Z80.0 FAMILY HISTORY OF MALIGNANT NEOPLASM OF 06/11/2017 SEAN KITCHEN MD Ot Z01.818 ENCOUNTER FOR OTHER PREPROCEDURAL EXAMIN 06/11/2017 SEAN KITCHEN MD Ot Z80.0 FAMILY HISTORY OF MALIGNANT NEOPLASM OF 06/12/2017 ORENDER DO, TRACEY S Ot E03.9 HYPOTHYROIDISM, UNSPECIFIED 06/12/2017 ORENDER DO, TRACEY S Ot E78.5 HYPERLIPIDEMIA, UNSPECIFIED 06/12/2017 ORENDER DO, TRACEY S Ot I25.10 ATHSCL HEART DISEASE OF [place] CORONARY 06/12/2017 ORENDER DO, TRACEY S Ot R53.83 OTHER FATIGUE 06/12/2017 ORENDER DO, TRACEY S Ot R80.9 PROTEINURIA, UNSPECIFIED 06/12/2017 ORENDER DO, TRACEY S Ot Z90.5 ACQUIRED ABSENCE OF KIDNEY 06/12/2017 RON RICHARDSON Ot E78.2 MIXED HYPERLIPIDEMIA 06/12/2017 RON RICHARDSON Ot I10 ESSENTIAL (PRIMARY) HYPERTENSION 06/12/2017 RON RICHARDSON Ot I34.0 NONRHEUMATIC MITRAL (VALVE) INSUFFICIENC 06/12/2017 RON RICHARDSON Ot 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 06/14/2017 ORENDER DO, TRACEY S Ot E03.9 HYPOTHYROIDISM, UNSPECIFIED 06/14/2017 ORENDER DO, TRACEY S Ot E78.5 HYPERLIPIDEMIA, UNSPECIFIED 06/14/2017 ORENDER DO, TRACEY S Ot I25.10 ATHSCL HEART DISEASE OF [place] CORONARY 06/14/2017 ORENDER DO, TRACEY S Ot R53.83 OTHER FATIGUE 06/14/2017 ORENDER DO, TRACEY Robert Ot R80.9 PROTEINURIA, UNSPECIFIED 06/14/2017 VINCENTSTEPHANIEISABEL TRACEY TILLMAN Ot Z90.5 ACQUIRED ABSENCE OF KIDNEY 06/14/2017 RON RICHARDSON Ot E78.2 MIXED HYPERLIPIDEMIA 06/14/2017 RON RICHARDSON Ot I10 ESSENTIAL (PRIMARY) HYPERTENSION 06/14/2017 RON RICHARDSON Ot I34.0 NONRHEUMATIC MITRAL (VALVE) INSUFFICIENC 06/14/2017 RON RICHARDSON Ot 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 06/14/2017 SEAN KITCHEN MD, Ot C61 MALIGNANT NEOPLASM OF PROSTATE 06/14/2017 SEAN KITCHEN MD, Ot E78.5 HYPERLIPIDEMIA, UNSPECIFIED 06/14/2017 SEAN KITCHEN MD, Ot I10 ESSENTIAL (PRIMARY) HYPERTENSION 06/14/2017 SEAN KITCHEN MD, Ot K21.9 GASTRO-ESOPHAGEAL REFLUX DISEASE WITHOUT 06/14/2017 SEAN KITCHEN MD Ot K57.30 DVRTCLOS OF LG INT W/O PERFORATION OR AB 06/14/2017 SEAN KITCHEN MD Ot Z12.11 ENCOUNTER FOR SCREENING FOR MALIGNANT NE 06/14/2017 SEAN KITCHEN MD, Ot Z79.82 KILN DRAWER (CURRENT) USE OF ASPIRIN 06/14/2017 SEAN KITCHEN MD, Ot Z79.899 OTHER KILN DRAWER (CURRENT) DRUG THERAPY 06/14/2017 SEAN KITCHEN MD, Ot Z80.0 FAMILY HISTORY OF MALIGNANT NEOPLASM OF 06/14/2017 SEAN KITCHEN MD, Ot Z86.010 PERSONAL HISTORY OF COLONIC POLYPS 06/18/2017 SEAN KITCHEN MD, Ot C61 MALIGNANT NEOPLASM OF PROSTATE 06/18/2017 SEAN KITCHEN MD, Ot E78.5 HYPERLIPIDEMIA, UNSPECIFIED 06/18/2017 SEAN KITCHEN MD, Ot I10 ESSENTIAL (PRIMARY) HYPERTENSION 06/18/2017 SEAN KITCHEN MD, Ot K21.9 GASTRO-ESOPHAGEAL REFLUX DISEASE WITHOUT 06/18/2017 SEAN KITCHEN MD Ot K57.30 DVRTCLOS OF LG INT W/O PERFORATION OR AB 06/18/2017 SEAN KITCHEN MD, Ot Z12.11 ENCOUNTER FOR SCREENING FOR MALIGNANT NE 06/18/2017 SEAN KITCHEN MD, Ot Z79.82 KILN DRAWER (CURRENT) USE OF ASPIRIN 06/18/2017 SEAN KITCHEN MD, Ot Z79.899 OTHER KILN DRAWER (CURRENT) DRUG THERAPY 06/18/2017 SEAN KITCHEN MD, Ot Z80.0 FAMILY HISTORY OF MALIGNANT NEOPLASM OF 06/18/2017 SEAN KITCHEN MD, Ot Z86.010 PERSONAL HISTORY OF COLONIC POLYPS 07/03/2017 RON RICHARDSON Ot E78.2 MIXED HYPERLIPIDEMIA 07/12/2017 SEAN KICTHEN MD, Ot C61 MALIGNANT NEOPLASM OF PROSTATE 07/12/2017 SEAN KITCHEN MD, Ot E78.5 HYPERLIPIDEMIA, UNSPECIFIED 07/12/2017 SEAN KITCHEN MD, Ot I10 ESSENTIAL (PRIMARY) HYPERTENSION 07/12/2017 SEAN KITCHEN MD, Ot K21.9 GASTRO-ESOPHAGEAL REFLUX DISEASE WITHOUT 07/12/2017 SEAN KITCHEN MD, Ot K57.30 DVRTCLOS OF LG INT W/O PERFORATION OR AB 07/12/2017 SEAN KITCHEN MD, Ot Z12.11 ENCOUNTER FOR SCREENING FOR MALIGNANT NE 07/12/2017 SEAN KITCHEN MD, Ot Z79.82 KILN DRAWER (CURRENT) USE OF ASPIRIN 07/12/2017 SEAN KITCHEN MD, Ot Z79.899 OTHER [facility] (CURRENT) DRUG THERAPY 07/12/2017 SEAN KITCHEN MD, Ot Z80.0 FAMILY HISTORY OF MALIGNANT NEOPLASM OF 07/12/2017 SEAN KITCHEN MD, Ot Z86.010 PERSONAL HISTORY OF COLONIC POLYPS 07/23/2017 RON RICHARDSON Ot E78.2 MIXED HYPERLIPIDEMIA 09/10/2017 RON RICHARDSON Ot E78.5 HYPERLIPIDEMIA, UNSPECIFIED 10/01/2017 RON RICHARDSON Ot E78.5 HYPERLIPIDEMIA, UNSPECIFIED 10/31/2017 AYESHA MEJIA APRN Ot I65.23 OCCLUSION AND STENOSIS OF BILATERAL LAO 10/31/2017 AYESHA MEJIA CAFE COOK Ot R55 SYNCOPE AND COLLAPSE 10/31/2017 AYESHA MEJIA CAFE COOK Ot S90.31XA CONTUSION OF RIGHT FOOT, INITIAL ENCOUNT 10/31/2017 ROBERTO, AYESHA R CAFE COOK Ot W19.XXXA UNSPECIFIED FALL, INITIAL ENCOUNTER 10/31/2017 ROBERTO, AYESHA R CAFE COOK Ot I65.23 OCCLUSION AND STENOSIS OF BILATERAL LAO 10/31/2017 ROBERTO, AYESHA R CAFE COOK Ot R55 SYNCOPE AND COLLAPSE 10/31/2017 ROBERTO, AYESHA R CAFE COOK Ot S90.31XA CONTUSION OF RIGHT FOOT, INITIAL ENCOUNT 10/31/2017 ROBERTO, AYESHA R CAFE COOK Ot W19.XXXA UNSPECIFIED FALL, INITIAL ENCOUNTER 11/05/2017 ROBERTO, AYESHA R CAFE COOK Ot I65.23 OCCLUSION AND STENOSIS OF BILATERAL LAO 11/05/2017 ROBERTO, AYESHA R CAFE COOK Ot R55 SYNCOPE AND COLLAPSE 11/05/2017 ROBERTO, AYESHA R CAFE COOK Ot S90.31XA CONTUSION OF RIGHT FOOT, INITIAL ENCOUNT 11/05/2017 ROBERTO, AYESHA R CAFE COOK Ot W19.XXXA UNSPECIFIED FALL, INITIAL ENCOUNTER 11/20/2017 ROBERTO, AYESHA R CAFE COOK Ot I65.23 OCCLUSION AND STENOSIS OF BILATERAL LAO 11/20/2017 ROBERTO, AYESHA R CAFE COOK Ot R55 SYNCOPE AND COLLAPSE 11/20/2017 ROBERTO, AYESHA R CAFE COOK Ot S90.31XA CONTUSION OF RIGHT FOOT, INITIAL ENCOUNT 11/20/2017 ROBERTO, AYESHA R CAFE COOK Ot W19.XXXA UNSPECIFIED FALL, INITIAL ENCOUNTER 11/25/2017 HILARIO FUENTES MD Ot E78.2 MIXED HYPERLIPIDEMIA 11/25/2017 HILARIO FUENTES MD Ot I10 ESSENTIAL (PRIMARY) HYPERTENSION 11/25/2017 HILARIO FUENTES MD Ot I34.0 NONRHEUMATIC MITRAL (VALVE) INSUFFICIENC 11/25/2017 HILARIO FUENTES MD Ot R07.89 OTHER CHEST PAIN 11/25/2017 HILARIO FUENTES MD Ot R09.89 OTH SYMPTOMS AND SIGNS INVOLVING THE CIR 11/29/2017 HILARIO FUENTES MD Ot G47.33 OBSTRUCTIVE SLEEP APNEA (ADULT) (PEDIATR 11/30/2017 HILARIO FUENTES MD, Ot G47.33 OBSTRUCTIVE SLEEP APNEA (ADULT) (PEDIATR 11/30/2017 HILARIO FUENTES MD Ot G47.61 PERIODIC LIMB MOVEMENT DISORDER 11/30/2017 HILARIO FUENTES MD Ot R06.83 SNORING 12/04/2017 HILARIO FUENTES MD Ot G47.61 PERIODIC LIMB MOVEMENT DISORDER 12/04/2017 HILARIO FUENTES MD Ot R06.83 SNORING 12/12/2017 HILARIO FUENTES MD Ot E78.2 MIXED HYPERLIPIDEMIA 12/12/2017 HILARIO FUENTES MD Ot I10 ESSENTIAL (PRIMARY) HYPERTENSION 12/12/2017 HILARIO FUENTES MD Ot I34.0 NONRHEUMATIC MITRAL (VALVE) INSUFFICIENC 12/12/2017 HILARIO FUENTES MD Ot R07.89 OTHER CHEST PAIN 12/12/2017 HILARIO FUENTES MD Ot R09.89 OTH SYMPTOMS AND SIGNS INVOLVING THE CIR 01/30/2018 KELLY JASMINE CAFE COOK Ot I25.10 ATHSCL HEART DISEASE OF [place] CORONARY 01/30/2018 KELLY JASMINE CAFE COOK Ot J84.10 PULMONARY FIBROSIS, UNSPECIFIED 02/04/2018 LUPE HERRERA CAFE COOK Ot E04.2 NONTOXIC MULTINODULAR GOITER 02/04/2018 LUPE HERRERA APRN Ot E78.00 PURE HYPERCHOLESTEROLEMIA, UNSPECIFIED 02/04/2018 LUPE HERRERA APRN Ot I10 ESSENTIAL (PRIMARY) HYPERTENSION 02/04/2018 LUPE HERRERA APRN Ot J30.9 ALLERGIC RHINITIS, UNSPECIFIED 02/04/2018 LUPE HERRERA APRN Ot J44.9 CHRONIC OBSTRUCTIVE PULMONARY DISEASE, U 02/04/2018 LUPE HERRERA CAFE COOK Ot K21.9 GASTRO-ESOPHAGEAL REFLUX DISEASE WITHOUT 02/25/2018 LUPE HERRERA CAFE COOK Ot E04.2 NONTOXIC MULTINODULAR GOITER 02/25/2018 LUPE HERRERA APRN Ot E78.00 PURE HYPERCHOLESTEROLEMIA, UNSPECIFIED 02/25/2018 LUPE HERRERA CAFE COOK Ot I10 ESSENTIAL (PRIMARY) HYPERTENSION 02/25/2018 LUPE HERRERA APRN Ot J30.9 ALLERGIC RHINITIS, UNSPECIFIED 02/25/2018 LUPE HERRERA APRN Ot J44.9 CHRONIC OBSTRUCTIVE PULMONARY DISEASE, U 02/25/2018 LUPE HERRERA CAFE COOK Ot K21.9 GASTRO-ESOPHAGEAL REFLUX DISEASE WITHOUT 03/27/2018 KELLY JASMINE CAFE COOK Ot J44.9 CHRONIC OBSTRUCTIVE PULMONARY DISEASE, U 03/27/2018 KELLY JASMINE APRN Ot R06.00 DYSPNEA, UNSPECIFIED 03/27/2018 KELLY JASMINE APRN Ot R06.2 WHEEZING 04/01/2018 HILARIO FUENTES MD, Ot C61 MALIGNANT NEOPLASM OF PROSTATE 04/01/2018 HILARIO FUENTES MD, Ot I10 ESSENTIAL (PRIMARY) HYPERTENSION 04/01/2018 HILARIO FUENTES MD, Ot I34.0 NONRHEUMATIC MITRAL (VALVE) INSUFFICIENC 04/01/2018 HILARIO FUENTES MD, Ot 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 Results Test Result Range Complete blood count (CBC) with automated white blood cell (WBC) differential - 10/05/16 07:51 Blood leukocytes automated count (number/volume) 9.0 10*3/uL 4.3-11.0 Blood erythrocytes automated count (number/volume) 5.51 10*6/uL 4.35-5.85 Venous blood hemoglobin measurement (mass/volume) 15.7 [...] Automated blood platelet mean volume measurement 11.7 [foz_us] 7.4-10.4 Automated blood neutrophils/100 leukocytes 66 % [...] Serum or plasma sodium measurement (moles/volume) 139 mmol/L 135-145 Serum or plasma potassium measurement (moles/volume) 4.2 mmol/L 3.6-5.0 Serum or plasma chloride measurement (moles/volume) 109 mmol/L 98-107 Carbon dioxide 23 mmol/L 21-32 Serum or plasma anion gap determination (moles/volume) 7 mmol/L 5-14 Serum or plasma urea nitrogen measurement (mass/volume) 14 mg/dL 7-18 Serum or plasma creatinine measurement (mass/volume) 1.48 mg/dL 0.60-1.30 Serum or plasma urea nitrogen/creatinine mass [...] Serum or plasma cholesterol measurement (mass/volume) 205 mg/dL < 200 Serum or plasma cholesterol in HDL measurement (mass/volume) 30 mg/ dL 40-60 Cholesterol in LDL [mass/volume] in serum or plasma by direct assay 135 mg/dL 1-129 Serum or plasma cholesterol in VLDL measurement (mass/volume) 41 mg/ dL 5-40 THYROID STIMULATING HORMONE - 10/05/16 07:51 THYROID STIMULATING HORMONE 2.39 u[iU]/mL 0.35-4.94 Serum or plasma thyroxine (T4) free measurement (mass/volume) - 10/05/16 07:51 Serum or plasma thyroxine (T4) free measurement (mass/volume) 0.97 ng/dL 0.70-1.48 Comprehensive metabolic panel - 03/13/17 07:09 Serum or plasma sodium measurement (moles/volume) 141 mmol/L 135-145 Serum or plasma potassium measurement (moles/volume) 4.0 mmol/L 3.6-5.0 Serum or plasma chloride measurement (moles/volume) 109 mmol/L 98-107 Carbon dioxide 21 mmol/L 21-32 Serum or plasma anion gap determination (moles/volume) 11 mmol/L 5-14 Serum or plasma urea nitrogen measurement (mass/volume) 21 mg/dL 7-18 Serum or plasma creatinine measurement (mass/volume) 1.31 mg/dL 0.60-1.30 Serum or plasma urea nitrogen/creatinine mass [...] Serum or plasma cholesterol measurement (mass/volume) 195 mg/dL < 200 Serum or plasma cholesterol in HDL measurement (mass/volume) 36 mg/ dL 40-60 Cholesterol in LDL [mass/volume] in serum or plasma by direct assay 138 mg/dL 1-129 Serum or plasma cholesterol in VLDL measurement (mass/volume) 33 mg/ dL 5-40 Liver function panel (serum or plasma alk phos, alb, total and direct bili, total protein, ALT, AST) - 06/27/17 06:40 Serum or plasma total bilirubin measurement (mass/volume) 0.8 mg/dL 0.1-1.0 Serum or plasma alkaline phosphatase measurement (enzymatic activity/volume) 94 U/L 40-136 Serum or plasma aspartate aminotransferase measurement (enzymatic activity/ volume) 20 U/L 5-34 Serum or plasma alanine aminotransferase measurement (enzymatic activity/volume ) 29 U/L 0-55 Serum or plasma protein measurement (mass/volume) 7.0 g/dL 6.4-8.2 Serum or plasma albumin measurement (mass/volume) 3.8 g/dL 3.2-4.5 Bilirubin direct 0.3 mg/dL 0.0-0.3 Serum or plasma indirect bilirubin measurement (mass/volume) 0.5 mg/ dL [facility] Lipid 1996 panel - 06/27/17 06:40 Serum or plasma triglyceride measurement (mass/volume) 139 mg/dL <150 Serum or plasma cholesterol measurement (mass/volume) 196 mg/dL < 200 Serum or plasma cholesterol in HDL measurement (mass/volume) 36 mg/ dL 40-60 Cholesterol in LDL [mass/volume] in serum or plasma by direct assay 145 mg/dL 1-129 Serum or plasma cholesterol in VLDL measurement (mass/volume) 28 mg/ dL 5-40 Encounters ACCT No. Visit Date/Time Discharge Status Pt. Type Provider Facility Loc./Unit Complaint [id number] 03/28/2018 06:59:00 03/28/2018 23:59:59 CLS Outpatient GINA GAVIRIA, HILARIO Foreman [facility] LAB R09.89,R07.89,I10 [id number] 02/03/2018 08:04:00 02/03/2018 23:59:59 CLS Outpatient LUPE HERRERA APRN [facility] RAD NONTOXIC GOITER, ALLERGIC RHINITIS [id number] 01/29/2018 09:56:00 01/29/2018 23:59:59 CLS Outpatient KELLY JASMINE CAFE COOK [facility] RAD MULTIPLE SUREKHA NODULES, WHEEZING,COUGH,FATIGUE [id number] 01/24/2018 16:07:00 01/24/2018 23:59:59 CLS Outpatient KELLY JASMINE CAFE COOK [facility] RT DYSPNEA,WHEEZING, COPD CHANGES ON EXAM [id number] 11/29/2017 19:58:00 11/30/2017 04:47:00 DIS Outpatient HILARIO FUENTES MD [facility] SLEEP OBSTRUCTIVE SLEEP APNEA G47.33 [id number] 11/22/2017 12:08:00 11/22/2017 23:59:59 CLS Outpatient HILARIO FUENTES MD [facility] CARD R07.89 CHEST PAIN SYNDROME [id number] 10/30/2017 14:39:00 10/30/2017 23:59:59 CLS Outpatient AYESHA MEJIA CAFE COOK [facility] RAD SYNCOPE X 2 AND HURT RIGHT FOOT [id number] 09/09/2017 07:30:00 09/09/2017 23:59:59 CLS Outpatient RON RICHARDSON [facility] LAB E78.2 [id number] 06/27/2017 06:26:00 06/27/2017 23:59:59 CLS Outpatient RON RICHARDSON [facility] LAB HYPERLIPIDEMIA [id number] 06/14/2017 09:18:00 06/14/2017 13:12:00 DIS Outpatient SEAN KITCHEN MD [facility] ENDO FAMILY HX COLON CA [id number] 06/10/2017 05:39:00 06/10/2017 13:31:00 DIS Outpatient SEAN KITCHEN MD [facility] PREOP COLO [id number] 03/13/2017 06:51:00 03/13/2017 23:59:59 CLS Outpatient RON RICHARDSON [facility] LAB I10 E78.2 I44.4 [id number] 10/16/2016 13:52:00 10/16/2016 23:59:59 CLS Outpatient VINCENTNDER YUDI TILLMANLINE S [facility] RAD R80.9 [id number] 10/05/2016 07:42:00 10/05/2016 23:59:59 CLS Outpatient TRAVIS DOYAOTRACEY S [facility] LAB HYPERLIPIDEMIA,HTN, FATIGUE [id number] 11/23/2015 08:06:00 11/23/2015 23:59:59 CLS Outpatient HILARIO FUENTES MD [facility] CARD [id number] 11/21/2015 14:37:00 11/21/2015 23:59:59 CLS Outpatient HILARIO FUENTES MD [facility] CARD [id number] 05/03/2015 08:24:00 05/03/2015 23:59:59 CLS Outpatient HILARIO FUENTES MD [facility] LAB [id number] 04/14/2015 08:01:00 04/14/2015 23:59:59 CLS Outpatient CINTHIA VALDEZ MD [facility] REHAB [id number] 04/06/2015 16:15:00 04/06/2015 00:01:00 DIS Outpatient CINTHIA VALDEZ MD [facility] REHAB [id number] 01/26/2015 12:15:00 01/26/2015 23:59:59 CLS Preadmit AUBREY AGUILAR DO [facility] REHAB [id number] 01/07/2015 08:39:00 01/07/2015 23:59:59 CLS Outpatient CINTHIA VALDEZ MD [facility] [id number] 01/03/2015 16:53:00 01/03/2015 23:59:59 CLS Outpatient CINTHIA VALDEZ MD [facility] [id number] 12/24/2014 08:19:00 12/24/2014 23:59:59 CLS Outpatient AUBREY AGUILAR DO [facility] [id number] 11/13/2013 09:08:00 11/13/2013 23:59:59 CLS Outpatient TRACEY BAILEY DO [facility] [id number] 11/13/2013 09:04:00 11/13/2013 23:59:59 CLS Outpatient GINA GAVIRIA, HILARIO Foreman [facility] [id number] 07/18/2012 05:59:00 Document Registration [id number] 07/11/2012 09:12:00 Document Registration [id number] 07/03/2012 15:28:00 Document Registration [id number] 06/20/2012 10:28:00 Document Registration 01/22/16 04/14/2018 09:03:01 04/14/2018 23:59:59 CLS Outpatient Tracey Bailey [id number] 04/14/2015 08:01:35 ACT Document Registration
[2018-06-08] MEDS ORDERED: NITROGLYCERIN 0.4 MG SL TABS BTL 25'S SL ONE (15:15)
[2018-06-08] MEDS ORDERED: ASPIRIN 81 MG CHEW (CHILDREN'S ASA) ONE (15:16)
[2018-06-08 16:13] LABS: BASOPHILS % (AUTO) 0 % (0-10); EOSINOPHILS # (AUTO) 0.3 10^3/uL (0.0-0.3); EOSINOPHILS % (AUTO) 3 % (0-10); HEMATOCRIT 43 % (40-54); HEMOGLOBIN 14.6 G/DL (13.3-17.7); LYMPHOCYTES % (AUTO) 19 % (12-44); MEAN CORPUSCULAR HEMOGLOBIN 28 PG (25-34); MEAN CORPUSCULAR HGB CONC 34 G/DL (32-36); MEAN CORPUSCULAR VOLUME 83 FL (80-99); MEAN PLATELET VOLUME 12.2 FL (7.4-10.4); MONOCYTES # (AUTO) 1.1 X 10^3 (0.0-1.0); MONOCYTES % (AUTO) 11 % (0-12); NEUTROPHILS % (AUTO) 67 % (42-75); PLATELET COUNT 234 10^3/uL (130-400); RED BLOOD COUNT 5.16 10^6/uL (4.35-5.85); RED CELL DISTRIBUTION WIDTH 15.1 % (10.0-14.5); WHITE BLOOD COUNT 10.4 10^3/uL (4.3-11.0)
[2018-06-08] MEDS ORDERED: RT-ALBUTEROL/IPRATROPIUM 3 ML (DUONEB) VIAL INH ONE (16:15)
[2018-06-08] MEDS ORDERED: NS IV 1000 ML 1,000 ML IV SCH (16:15)
--- NOTE | 2018-06-08 16:23 | ED Respiratory ---
General Chief Complaint: Respiratory Problems Stated Complaint: SOB/SENT FROM URGENT CARE Nursing Triage Note: PT STATES THAT AROUND 0300 THIS AM HE BEGAN TO DEVELOPE WHEEZING WITH SOA UPON EXERTION. PT WAS SENT TO THE ED FROM URGENT CARE THIS AFTERNOON. PT DENIES CHEST PAIN, DIZZYNESS OR NAUSEA. Source: patient, family Exam Limitations: no limitations History of Present Illness Date Seen by Provider: Jun 08, 2018 Time Seen by Provider: 16:08 Initial Comments 73-year-old white male presents with a complaint of wheezing that began at 3 o' clock this morning when he went to the bathroom. Patient's wheezing continued today and he presented to urgent care who referred him to the emergency department for evaluation. Patient states that he's had a long-standing history of intermittent wheezing simply not as severe as it was last night. He has had no associated fever, chills, productive cough, associated chest pain, palpitations, nausea, vomiting , or diaphoresis. The patient's wheezing has never been definitively diagnosed. He does not take any breathing treatments. Patient's past medical history was essentially unremarkable. The recent travel to [place] has concerned the patient's that he may be having a pulmonary embolus. 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 Allergies and Home Medications Allergies Coded Allergies: Adhesive Bandage (Unverified Allergy, Unknown, SORES, 06/10/17) Home Medications Amlodipine Besylate 10 Mg Tablet, 10 MG PO HS, (Reported) Aspirin 81 Mg Tab.chew, 81 MG PO DAILY, (Reported) Metoprolol Tartrate 50 Mg Tablet, 50 MG PO DAILY, (Reported) Patient Home Medication List Home Medication List Reviewed: Yes Review of Systems Review of Systems Constitutional: No chills, No fever EENTM: No ear pain, No hoarseness Respiratory: No cough; short of breath, wheezing Cardiovascular: No chest pain, No palpitations Gastrointestinal: No abdominal pain, No diarrhea, No nausea, No vomiting Genitourinary: No dysuria, No frequency Musculoskeletal: No back pain Skin: No change in color, No rash Psychiatric/Neurological: No Symptoms Reported Hematologic/Lymphatic: No Symptoms Reported Immunological/Allergic: no symptoms reported Past Orexapl-Fiywkq-Ddapio Hx Past Med/Social Hx: Reviewed Nursing Past Med/Soc Hx Patient Social History Alcohol Use: Denies Use Recreational Drug Use: No Smoking Status: Never a Smoker 2nd Hand Smoke Exposure: No Recent Foreign Travel: No Contact w/Someone Who Travel: No Recent Infectious Disease Expo: No Recent Hopitalizations: No Immunizations Up To Date Tetanus Booster (TDap): Unknown Date of Pneumonia Vaccine: Mar 11, 2017 Date of Influenza Vaccine: Apr 15, 2017 Seasonal Allergies Seasonal Allergies: No Past Medical History Surgeries: Yes (PROSTATECTOMY, L NEPHRECTOMY, CATARACTS) Appendectomy Respiratory: No Currently Using CPAP: No Currently Using BIPAP: No Cardiac: Yes (HEART CATH 2015) Hypertension Neurological: No Reproductive Disorders: No Sexually Transmitted Disease: No HIV/AIDS: No Genitourinary: Yes (RENAL MASS- NON MALIGNANT- LEFT. REMOVED) Gastrointestinal: No Musculoskeletal: No Endocrine: No Loss of Vision: Denies Hearing Impairment: Denies Cancer: Yes Prostate What Type of Treatment Did You: Surgical Intervention Psychosocial: No Integumentary: No Blood Disorders: No Adverse Reaction/Blood Tranf: No (N/A) Physical Exam Vital Signs - First Documented 06/08/18 14:58 Temp 98.3 Pulse 80 Resp 20 B/P (MAP) 201/107 (138) Pulse Ox 96 O2 Delivery Room Air Capillary Refill : Less Than 3 Seconds Height: 6'2.00" Weight: 250lbs. 0.7oz. 113.930008zu; 29.3 BMI Method:Stated General Appearance: WD/WN, no apparent distress Eyes: Bilateral Eye Normal Inspection HEENT: normal ENT inspection Neck: full range of motion, normal inspection Respiratory: other (on auscultation of the chest I thought I could hear a few rales in the patient's left base.) Cardiovascular: normal peripheral pulses, regular rate, rhythm Gastrointestinal: normal bowel sounds, non tender Extremities: normal range of motion, non-tender, normal inspection Neurologic/Psychiatric: no motor/sensory deficits, alert, normal mood/affect, oriented x 3 Skin: normal color, warm/dry Progress/Results/Core Measures Suspected Sepsis Recent Fever Within 48 Hours: No Infection Criteria Present: Suspected New Infection New/Unexplained Altered Menta: No Sepsis Screen: No Definite Risk SIRS Temperature:98.3 Pulse: 80 Respiratory Rate: 20 Laboratory Tests 06/08/18 15:28: White Blood Count 10.4 Blood Pressure 201 /107 Mean: 138 Laboratory Tests 06/08/18 15:28: Creatinine 1.62H, Platelet Count 234, Total Bilirubin 0.5 Results/Orders Lab Results Laboratory Tests Test 06/08/18 15:28 Range/Units White Blood Count 10.4 4.3-11.0 10^3/uL Red Blood Count 5.16 4.35-5.85 10^6/uL Hemoglobin 14.6 13.3-17.7 G/DL Hematocrit 43 40-54 % Mean Corpuscular Volume 83 80-99 FL Mean Corpuscular Hemoglobin 28 25-34 PG Mean Corpuscular Hemoglobin Concent 34 32-36 G/DL Red Cell Distribution Width 15.1 H 10.0-14.5 % Platelet Count 234 130-400 10^3/uL Mean Platelet Volume 12.2 H 7.4-10.4 FL Neutrophils (%) (Auto) 67 42-75 % Lymphocytes (%) (Auto) 19 12-44 % Monocytes (%) (Auto) 11 0-12 % Eosinophils (%) (Auto) 3 0-10 % Basophils (%) (Auto) 0 0-10 % Neutrophils # (Auto) 7.0 1.8-7.8 X 10^3 Lymphocytes # (Auto) 2.0 1.0-4.0 X 10^3 Monocytes # (Auto) 1.1 H 0.0-1.0 X 10^3 Eosinophils # (Auto) 0.3 0.0-0.3 10^3/uL Basophils # (Auto) 0.0 0.0-0.1 10^3/uL D-Dimer 0.95 H 0.00-0.49 UG/ML Sodium Level 141 135-145 MMOL/L Potassium Level 3.9 3.6-5.0 MMOL/L Chloride Level 111 H 98-107 MMOL/L Carbon Dioxide Level 19 L 21-32 MMOL/L Anion Gap 11 5-14 MMOL/L Blood Urea Nitrogen 22 H 7-18 MG/DL Creatinine 1.62 H 0.60-1.30 MG/DL Estimat Glomerular Filtration Rate 42 BUN/Creatinine Ratio 14 Glucose Level 115 H 70-105 MG/DL Calcium Level 9.3 8.5-10.1 MG/DL Corrected Calcium 9.4 8.5-10.1 MG/DL Total Bilirubin 0.5 0.1-1.0 MG/DL Aspartate Amino Transf (AST/SGOT) 19 5-34 U/L Alanine Aminotransferase (ALT/SGPT) 25 0-55 U/L Alkaline Phosphatase 91 40-136 U/L Troponin I < 0.30 <0.30 NG/ML B-Type Natriuretic Peptide 138.1 H <100.0 PG/ML Total Protein 7.1 6.4-8.2 GM/DL Albumin 3.9 3.2-4.5 GM/DL My Orders Orders - AILYN PERALTA MD Nitroglycerin 0.4 Mg Btl 25's (Nitrostat (06/08/18 15:15) Aspirin Chewable Tablet (Baby Aspirin Ch (06/08/18 15:16) Cbc With Automated Diff (06/08/18 16:05) Comprehensive Metabolic Panel (06/08/18 16:05) Chest Pa/Lat With Both Oblique (06/08/18 16:05) Troponin I (06/08/18 16:05) Fibrin Degradation Products (06/08/18 16:05) BNP (06/08/18 16:05) Albuterol/Ipra Inhalation Soln (Duoneb I (06/08/18 16:15) Svn Small Volume Nebulizer (06/08/18 16:05) Ns Iv 1000 Ml (Sodium Chloride 0.9%) (06/08/18 16:15) Us Venous Lower Ext [place] (06/08/18 17:03) Medications Given in ED Current Medications Medications Dose Ordered Sig/Gladis Route Start Time Stop Time Status Last Admin Dose Admin Albuterol/ Ipratropium 3 ml ONCE ONCE INH 06/08/18 16:15 06/08/18 16:16 DC 06/08/18 16:34 3 ML Aspirin 81 mg STK-MED ONCE .ROUTE 06/08/18 15:16 06/08/18 15:18 DC 06/08/18 15:29 81 MG Nitroglycerin 0.4 mg STK-MED ONCE SL 06/08/18 15:15 06/08/18 15:18 DC 06/08/18 15:30 0.4 MG Vital Signs/I&O 06/08/18 06/08/18 14:58 16:35 Temp 98.3 Pulse 80 Resp 20 B/P (MAP) 201/107 (138) Pulse Ox 96 94 O2 Delivery Room Air Room Air Capillary Refill : Less Than 3 Seconds Blood Pressure Mean: 138 Progress Note : Time: 17:12 Progress Note The patient was symptomatically improved with a DuoNeb nebulizer treatment. Patient's d-dimer was mildly positive. The patient's renal function however precluded a CTA study. I have ordered an ultrasound of the legs. The patient is taking an aspirin daily already which should be protective. 6pm The patient's ultrasound legs was negative. I discussed findings with the patient's family. The patient a prescription for an albuterol inhaler at home for his wheezing. Will continue with his aspirin daily. I asked to follow-up with his caregivers as scheduled. I return if any further problems or questions. Departure Impression Primary Impression: Wheezing Disposition: 01 HOME, SELF-CARE Condition: Improved Transfer Time Spoke to Accepting Phy: 18:09 Departure-Patient Inst. Decision time for Depature: 18:09 Referrals: MAUREEN ROBLES DO (PCP/Family) Primary Care Physician Patient Instructions: Asthma, Child (DC) Add. Discharge Instructions: Albuterol inhaler as prescribed. Follow-up with her caregivers as scheduled. Return of any problems or questions. All discharge instructions reviewed with patient and/or family. Voiced understanding. AILYN PERALTA MD Jun 08, 2018 16:23
[2018-06-08 16:25] LABS: ALANINE AMINOTRANSFERASE 25 U/L (0-55); ALBUMIN 3.9 GM/DL (3.2-4.5); ALKALINE PHOSPHATASE 91 U/L (40-136); BILIRUBIN,TOTAL 0.5 MG/DL (0.1-1.0); BUN/CREATININE RATIO 14; CALCIUM 9.3 MG/DL (8.5-10.1); CARBON DIOXIDE 19 MMOL/L (21-32); CHLORIDE 111 MMOL/L (98-107); CREATININE SERUM 1.62 MG/DL (0.60-1.30); GFR ESTIMATED 42; GLUCOSE 115 MG/DL (70-105); POTASSIUM 3.9 MMOL/L (3.6-5.0); SODIUM 141 MMOL/L (135-145); TOTAL PROTEIN 7.1 GM/DL (6.4-8.2)
--- NOTE | 2018-06-08 17:00 | Diagnostic Imaging Report ---
INDICATION: Wheezing, shortness of air with exertion. EXAMINATION: Frontal, lateral and bilateral oblique chest radiographs were performed. FINDINGS: Calcified granuloma in the right lower lobe. No noncalcified or suspect chest mass. There is some symmetrical air trapping with mild flattening of the diaphragms. There is some mild chronic linear prominence of the basilar interstitial lung markings. No pneumonia, failure, effusion or pneumothorax. IMPRESSION: No acute appearing abnormality. Dictated by: Dictated on workstation # [id number]
--- NOTE | 2018-06-08 17:48 | Diagnostic Imaging Report ---
INDICATION: Bilateral leg edema and shortness of breath. Bilateral lower extremity venous Doppler study was performed in the routine fashion with color flow Doppler and waveform analysis. FINDINGS: The common femoral veins, superficial femoral veins, popliteal veins and visualized portion of the tibial veins show normal compressibility and venous flow patterns. There is normal augmentation. IMPRESSION: No evidence of deep vein thrombosis in the major veins of both legs. Dictated by: Dictated on workstation # [id number]
[2018-06-08 18:22] VITALS: BP 188/96
== END 2018-06-08 18:22 | disposition home or self-care (01) ==
LOC: EDUNIT# 14:54 → ER 14:55
DX: R06.2 Wheezing (principal); I10 Essential (primary) hypertension; Z85.46 Personal history of malignant neoplasm of prostate; Z91.048 Other nonmedicinal substance allergy status; Z79.82 Long term (current) use of aspirin; Z90.49 Acquired absence of other specified parts of digestive tract; Z90.79 Acquired absence of other genital organ(s); Z90.5 Acquired absence of kidney
CPT/HCPCS: 36415; 71048; 80053; 83880; 84484; 85025; 85379; 93005; 93970; 94640

== ENCOUNTER → 2018-06-11 | Outpatient (CLI) | payer MEDICARE, OTHER ==
--- NOTE | 2018-06-11 15:18 | Diagnostic Imaging Report ---
INDICATION: Dyspnea. TECHNIQUE: The patient was administered 1 mCi technetium 99m aerosolized DTPA and imaging over the chest was performed. Next, patient was administered 5.1 mCi technetium 99m MAA intravenously and imaging over the chest was performed at multiple obliquities. FINDINGS: There appears to be fairly homogeneous uptake of activity throughout both lungs on both ventilation and perfusion portions of the study. No ventilation defect is seen. No pleural-based perfusion defect is identified. IMPRESSION: Normal ventilation and perfusion lung scan. Dictated by: Dictated on workstation # [id number]
== END ==
LOC: CARD 13:38
PROVIDERS: ATTEND Nurse Practitioner Family
DX: R06.00 Dyspnea, unspecified (principal)
CPT/HCPCS: 78582

== ENCOUNTER → 2018-06-20 | Outpatient (CLI) | payer MEDICARE, OTHER ==
--- NOTE | 2018-06-20 14:15 | Diagnostic Imaging Report ---
PROCEDURE: US Thyroid. TECHNIQUE: Multiple real-time grayscale images were obtained of the thyroid in various projections. INDICATION: Bilateral thyroid nodules. FINDINGS: The right thyroid lobe measured 5.6 x 2.6 x 2.3 cm. Its echotexture was predominantly homogenous but does contain two small nodules at its upper and lower pole. The upper pole nodule measuring 9 mm long axis. The lower pole nodule measured 1.2 cm long axis. The lower pole nodule does appear well-circumscribed. Its rim is hypoechoic but centrally it is largely isoechoic to hyperechoic. No abnormal calcifications associated with these lesions. The left thyroid lobe also enlarged 5.6 x 2.9 x 2.7 cm. Its echotexture was largely homogenous but does show at least three discrete masses. The largest of which is in the midpole measuring 2.1 x 1.5 cm and is a solid lesion and contains multiple calcifications. Next largest lesion is in the lower pole heterogeneous in its echotexture with mixed hyper- and hypoechoic elements but no obvious calcifications. The third small subcentimeter nodule is a well-defined hypoechoic nodule of 8 mm at the mid to upper third. IMPRESSION: The left lobe dominant mass is 2.1 cm, solid and showing multiple calcifications without any appreciable change when compared to the study performed 02/03/2018. Remaining smaller lesions are also stable. No new abnormality. Dictated by: Dictated on workstation # [id number]
== END ==
LOC: RAD 12:19
PROVIDERS: ATTEND Otolaryngology Otolaryngology/Facial Plastic Surgery
DX: E04.2 Nontoxic multinodular goiter (principal)
CPT/HCPCS: 76536

== ENCOUNTER 2018-06-30 15:38 | Emergency (ER) | payer MEDICARE, OTHER ==
[~2018-06-30] VITALS: Ht 188 cm; Wt 122.5 kg
--- OUTSIDE RECORDS SUMMARY | 2018-06-30 16:00 | XMS REPORT | Continuity of Care Document ---
Author Author [facility] Organization [facility] Address Unknown Phone Unavailable Allergies Active Description Code Type Severity Reaction Onset Reported/Identified Relationship to Patient Clinical Status Yes Adhesive Bandage [id number] Drug Allergy Unknown SORES 06/10/2017 Medications There [...] CINTHIA VALDEZ MD Ot 453.40 01/27/2015 CINTHIA VALEDZ MD, Ot 724.02 04/06/2015 CINTHIA VALDEZ MD [...] FUENTES MD Ot E78.2 MIXED HYPERLIPIDEMIA 11/24/2015 HILRAIO FUENTES MD Ot I10 ESSENTIAL (PRIMARY) HYPERTENSION [...] S Ot I25.10 ATHSCL HEART DISEASE OF [place] CORONARY 10/08/2016 ORENDER DO, TRACEY S Ot R53.83 OTHER FATIGUE 10/16/2016 ORENDER DO, TRACEY S Ot E03.9 HYPOTHYROIDISM, UNSPECIFIED 10/16/2016 ORENDER DO, TRACEY S Ot E78.5 HYPERLIPIDEMIA, UNSPECIFIED 10/16/2016 ORENDER DO, TRACEY S Ot I25.10 ATHSCL HEART DISEASE OF [place] CORONARY 10/16/2016 ORENDER DO, TRACEY S Ot R53.83 OTHER FATIGUE 10/16/2016 ORENDER DO, TRACEY S Ot E03.9 HYPOTHYROIDISM, UNSPECIFIED 10/16/2016 ORENDER DO, TRACEY S Ot E78.5 HYPERLIPIDEMIA, UNSPECIFIED 10/16/2016 ORENDER DO, TRACEY S Ot I25.10 ATHSCL HEART DISEASE OF [place] CORONARY 10/16/2016 ORENDER DO, TRACEY S Ot R53.83 OTHER FATIGUE 10/29/2016 ORENDER DO, TRACEY S Ot E03.9 HYPOTHYROIDISM, UNSPECIFIED 10/29/2016 ORENDER DO, TRACEY S Ot E78.5 HYPERLIPIDEMIA, UNSPECIFIED 10/29/2016 ORENDER DO, TRACEY S Ot I25.10 ATHSCL HEART DISEASE OF [place] CORONARY 10/29/2016 ORENDER DO, TRACEY S Ot R53.83 OTHER FATIGUE 11/06/2016 ORENDER DO, TRACEY S Ot R80.9 PROTEINURIA, UNSPECIFIED 11/06/2016 ORENDER DO, TRACEY S Ot Z90.5 ACQUIRED ABSENCE OF KIDNEY 02/14/2017 ORENDER DO, TRACEY S Ot E03.9 HYPOTHYROIDISM, UNSPECIFIED 02/14/2017 ORENDER DO, TRACEY S Ot E78.5 HYPERLIPIDEMIA, UNSPECIFIED 02/14/2017 ORENDER DO, TRACEY S Ot I25.10 ATHSCL HEART DISEASE OF [place] CORONARY 02/14/2017 ORENDER DO, TRACEY S Ot R53.83 OTHER FATIGUE 02/14/2017 ORENDER DO, TRACEY S Ot R80.9 PROTEINURIA, UNSPECIFIED 02/14/2017 ORENDER DO, TRACEY S Ot Z90.5 ACQUIRED ABSENCE OF KIDNEY 03/13/2017 ORENDER DO, TRACEY S Ot E03.9 HYPOTHYROIDISM, UNSPECIFIED 03/13/2017 ORENDER DO, TRACEY S Ot E78.5 HYPERLIPIDEMIA, UNSPECIFIED 03/13/2017 ORENDER DO, TRACEY S Ot I25.10 ATHSCL HEART DISEASE OF [place] CORONARY 03/13/2017 ORENDER DO, TRACEY S Ot [...] RICHARDSON Ot I10 ESSENTIAL (PRIMARY) HYPERTENSION 04/03/2017 RNO RICHARDSON Ot I34.0 NONRHEUMATIC MITRAL (VALVE) INSUFFICIENC [...] S Ot I25.10 ATHSCL HEART DISEASE OF [place] CORONARY 06/12/2017 ORENDER DO, TRACEY S Ot [...] S Ot I25.10 ATHSCL HEART DISEASE OF [place] CORONARY 06/14/2017 ORENDER DO, TRACEY S Ot R53.83 OTHER FATIGUE 06/14/2017 ORENDER DO, TRACEY Roebrt Ot R80.9 PROTEINURIA, UNSPECIFIED 06/14/2017 VINCENTSTEPHANIEISABEL TRACEY [...] NE 06/14/2017 SEAN KITCHEN MD, Ot Z79.82 [facility] (CURRENT) USE OF ASPIRIN 06/14/2017 SEAN KITCHEN MD, Ot Z79.899 OTHER [facility] (CURRENT) DRUG THERAPY 06/14/2017 SEAN KITCHEN MD, [...] NE 06/18/2017 SEAN KITCHEN MD, Ot Z79.82 [facility] (CURRENT) USE OF ASPIRIN 06/18/2017 SEAN KITCHEN MD, Ot Z79.899 OTHER TRANSFER TABLE OPERATOR HELPER (CURRENT) DRUG THERAPY 06/18/2017 SEAN KITCHEN MD, Ot Z80.0 FAMILY HISTORY OF MALIGNANT NEOPLASM OF 06/18/2017 SEAN KITCHEN MD, Ot Z86.010 PERSONAL HISTORY OF COLONIC POLYPS 07/03/2017 RON RICHARDSON Ot E78.2 MIXED HYPERLIPIDEMIA 07/12/2017 SEAN KITCHEN MD, Ot C61 MALIGNANT NEOPLASM [...] NE 07/12/2017 SEAN KITCHEN MD, Ot Z79.82 [facility] (CURRENT) USE OF ASPIRIN 07/12/2017 SEAN KITCHEN MD, Ot Z79.899 OTHER TRANSFER TABLE OPERATOR HELPER (CURRENT) DRUG THERAPY 07/12/2017 SEAN KITCHEN MD, Ot Z80.0 FAMILY HISTORY OF MALIGNANT NEOPLASM OF 07/12/2017 SEAN KITCHEN MD, Ot Z86.010 PERSONAL HISTORY OF COLONIC POLYPS 07/23/2017 RON RICHARDSON Ot E78.2 MIXED HYPERLIPIDEMIA 09/10/2017 RON RICHARDSON Ot E78.5 HYPERLIPIDEMIA, UNSPECIFIED 10/01/2017 RON RICHARDSON Ot E78.5 HYPERLIPIDEMIA, UNSPECIFIED 10/31/2017 AYESHA MEJIA APRN Ot I65.23 OCCLUSION AND STENOSIS OF BILATERAL LAO 10/31/2017 AYESHA MEJIA SHEET WRITER Ot R55 SYNCOPE AND COLLAPSE 10/31/2017 AYESHA MEJIA SHEET WRITER Ot S90.31XA CONTUSION OF RIGHT FOOT, INITIAL ENCOUNT 10/31/2017 ROBERTO, AYESHA R SHEET WRITER Ot W19.XXXA UNSPECIFIED FALL, INITIAL ENCOUNTER 10/31/2017 ROBERTO, AYESHA R SHEET WRITER Ot I65.23 OCCLUSION AND STENOSIS OF BILATERAL [place]O 10/31/2017 ROBERTO, AYESHA R SHEET WRITER Ot R55 SYNCOPE AND COLLAPSE 10/31/2017 ROBERTO, AYESHA R SHEET WRITER Ot S90.31XA CONTUSION OF RIGHT FOOT, INITIAL ENCOUNT 10/31/2017 ROBERTO, AYESHA R SHEET WRITER Ot W19.XXXA UNSPECIFIED FALL, INITIAL ENCOUNTER 11/05/2017 ROBERTO, AYESHA R SHEET WRITER Ot I65.23 OCCLUSION AND STENOSIS OF BILATERAL [place] 11/05/2017 ROBERTO, AYESHA R SHEET WRITER Ot R55 SYNCOPE AND COLLAPSE 11/05/2017 ROBERTO, AYESHA R SHEET WRITER Ot S90.31XA CONTUSION OF RIGHT FOOT, INITIAL ENCOUNT 11/05/2017 ROBERTO, AYESHA R SHEET WRITER Ot W19.XXXA UNSPECIFIED FALL, INITIAL ENCOUNTER 11/20/2017 ROBERTO, AYESHA R SHEET WRITER Ot I65.23 OCCLUSION AND STENOSIS OF BILATERAL [place]O 11/20/2017 ROBERTO, AYESHA R SHEET WRITER Ot R55 SYNCOPE AND COLLAPSE 11/20/2017 ROBERTO, AYESHA R SHEET WRITER Ot S90.31XA CONTUSION OF RIGHT FOOT, INITIAL ENCOUNT 11/20/2017 ROBERTO, AYESHA R SHEET WRITER Ot W19.XXXA UNSPECIFIED FALL, INITIAL ENCOUNTER 11/25/2017 [...] SIGNS INVOLVING THE CIR 01/30/2018 KELLY JASMINE SHEET WRITER Ot I25.10 ATHSCL HEART DISEASE OF [place] CORONARY 01/30/2018 KELLY JASMINE SHEET WRITER Ot J84.10 PULMONARY FIBROSIS, UNSPECIFIED 02/04/2018 LUPE HERRERA SHEET WRITER Ot E04.2 NONTOXIC MULTINODULAR GOITER 02/04/2018 LUPE HERRERA APRN Ot E78.00 PURE HYPERCHOLESTEROLEMIA, UNSPECIFIED 02/04/2018 LUPE HERRERA APRN Ot I10 ESSENTIAL (PRIMARY) HYPERTENSION 02/04/2018 LUPE HERRERA APRN Ot J30.9 ALLERGIC RHINITIS, UNSPECIFIED 02/04/2018 LUPE HERRERA APRN Ot J44.9 CHRONIC OBSTRUCTIVE PULMONARY DISEASE, U 02/04/2018 LUPE HERRERA SHEET WRITER Ot K21.9 GASTRO-ESOPHAGEAL REFLUX DISEASE WITHOUT 02/25/2018 LUPE HERRERA SHEET WRITER Ot E04.2 NONTOXIC MULTINODULAR GOITER 02/25/2018 LUPE HERRERA APRN Ot E78.00 PURE HYPERCHOLESTEROLEMIA, UNSPECIFIED 02/25/2018 LUPE HERRERA SHEET WRITER Ot I10 ESSENTIAL (PRIMARY) HYPERTENSION 02/25/2018 LUPE HERRERA APRN Ot J30.9 ALLERGIC RHINITIS, UNSPECIFIED 02/25/2018 LUPE HERRERA APRN Ot J44.9 CHRONIC OBSTRUCTIVE PULMONARY DISEASE, U 02/25/2018 LUPE HERRERA SHEET WRITER Ot K21.9 GASTRO-ESOPHAGEAL REFLUX DISEASE WITHOUT 03/27/2018 KENROYCECILIAKole Cooney SHEET WRITER Ot J44.9 CHRONIC OBSTRUCTIVE PULMONARY DISEASE, U 03/27/2018 KELLY JASMINE SHEET WRITER Ot R06.00 DYSPNEA, UNSPECIFIED 03/27/2018 KELLY JASMINE SHEET WRITER Ot R06.2 WHEEZING 04/01/2018 HILARIO FUENTES MD Ot C61 MALIGNANT NEOPLASM OF [place]OST[place] 04/01/2018 HILARIO FUENTES MD Ot I10 ESSENTIAL (PRIMARY) HYPERTENSION 04/01/2018 HILARIO FUENTES MD Ot I34.0 NONRHEUMATIC MITRAL (VALVE) INSUFFICIENC 04/01/2018 HILARIO FUENTES MD Ot 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 04/01/2018 HILARIO FUENTES MD Ot R07.89 OTHER CHEST PAIN 04/01/2018 HILARIO FUENTES MD Ot R09.89 OTH SYMPTOMS AND SIGNS INVOLVING THE CIR 06/08/2018 VINCENTNDER DO, TRACEY S Ot E03.9 HYPOTHYROIDISM, UNSPECIFIED 06/08/2018 ORENDER DO, TRACEY S Ot E78.5 HYPERLIPIDEMIA, UNSPECIFIED 06/08/2018 ORENDER DO, TRACEY S Ot I25.10 ATHSCL HEART DISEASE OF [place] CORONARY 06/08/2018 ORENDER DO, TRACEY S Ot R53.83 OTHER FATIGUE 06/08/2018 ORENDER DO, TRACEY S Ot R80.9 PROTEINURIA, UNSPECIFIED 06/08/2018 ORENDER DO, TRACEY S Ot Z90.5 ACQUIRED ABSENCE OF KIDNEY 06/08/2018 RON RICHARDSON Ot E78.2 MIXED HYPERLIPIDEMIA 06/08/2018 RON RICHARDSON Ot I10 ESSENTIAL (PRIMARY) HYPERTENSION 06/08/2018 RON RICHARDSON Ot I34.0 NONRHEUMATIC MITRAL (VALVE) INSUFFICIENC 06/08/2018 RON RICHARDSON Ot 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 06/08/2018 RON RICHARDSON Ot E78.2 MIXED HYPERLIPIDEMIA 06/08/2018 PETERS-QIAN PA, RON K Ot E78.5 HYPERLIPIDEMIA, UNSPECIFIED 06/08/2018 AYESHA MEJIA SHEET WRITER Ot I65.23 OCCLUSION AND STENOSIS OF BILATERAL [place]O 06/08/2018 ROBERTO AYESHA Petty SHEET WRITER Ot R55 SYNCOPE AND COLLAPSE 06/08/2018 AYESHA MEJIA Petty SHEET WRITER Ot S90.31XA CONTUSION OF RIGHT FOOT, INITIAL ENCOUNT 06/08/2018 ROBERTORENÉE HUMPHREYYSON Petty NICOLLE Ot W19.XXXA UNSPECIFIED FALL, INITIAL ENCOUNTER 06/08/2018 HILARIO FUENTES MD Ot E78.2 MIXED HYPERLIPIDEMIA 06/08/2018 HILARIO FUENTES MD, Ot I10 ESSENTIAL (PRIMARY) HYPERTENSION 06/08/2018 HILARIO FUENTES MD Ot I34.0 NONRHEUMATIC MITRAL (VALVE) INSUFFICIENC 06/08/2018 HILARIO FUENTES MD Ot R07.89 OTHER CHEST PAIN 06/08/2018 HILARIO FUENTES MD Ot R09.89 OTH SYMPTOMS AND SIGNS INVOLVING THE CIR 06/08/2018 KELLY JASMINE SHEET WRITER Ot I25.10 ATHSCL HEART DISEASE OF [place] CORONARY 06/08/2018 KELLY JASMINE SHEET WRITER Ot J84.10 PULMONARY FIBROSIS, UNSPECIFIED 06/08/2018 KELLY JASMINE SHEET WRITER Ot J44.9 CHRONIC OBSTRUCTIVE PULMONARY DISEASE, U 06/08/2018 KELLY JASMINE SHEET WRITER Ot R06.00 DYSPNEA, UNSPECIFIED 06/08/2018 KELLY JASMINE SHEET WRITER Ot R06.2 WHEEZING 06/08/2018 LUPE HERRERA APRN Ot E04.2 NONTOXIC MULTINODULAR GOITER 06/08/2018 LUPE HERRERA APRN Ot E78.00 PURE HYPERCHOLESTEROLEMIA, UNSPECIFIED 06/08/2018 LUPE HERRERA APRN Ot I10 ESSENTIAL (PRIMARY) HYPERTENSION 06/08/2018 LUPE HERRERA APRN Ot J30.9 ALLERGIC RHINITIS, UNSPECIFIED 06/08/2018 LUPE HERRERA APRN Ot J44.9 CHRONIC OBSTRUCTIVE PULMONARY DISEASE, U 06/08/2018 LUPE HERRERA APRN Ot K21.9 GASTRO-ESOPHAGEAL REFLUX DISEASE WITHOUT 06/08/2018 HILARIO FUENTES MD Ot C61 MALIGNANT NEOPLASM OF PROSTATE 06/08/2018 HILARIO FUENTES MD Ot I10 ESSENTIAL (PRIMARY) HYPERTENSION 06/08/2018 HILARIO FUENTES MD Ot I34.0 NONRHEUMATIC MITRAL (VALVE) INSUFFICIENC 06/08/2018 HILARIO FUENTES MD Ot 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 06/08/2018 HILARIO FUENTES MD Ot R07.89 OTHER CHEST PAIN 06/08/2018 HILARIO FUENTES MD Ot R09.89 OTH SYMPTOMS AND SIGNS INVOLVING THE CIR 06/08/2018 AILYN PERALTA MD Ot I10 ESSENTIAL (PRIMARY) HYPERTENSION 06/08/2018 AILYN PERALTA MD Ot R06.2 WHEEZING 06/08/2018 AILYN PERALTA MD Ot Z79.82 TRANSFER TABLE OPERATOR HELPER (CURRENT) USE OF ASPIRIN 06/08/2018 AILYN PERALTA MD Ot Z85.46 PERSONAL HISTORY OF MALIGNANT NEOPLASM O 06/08/2018 AILYN PERALTA MD Ot Z90.49 ACQUIRED ABSENCE OF OTHER SPECIFIED PART 06/08/2018 AILYN PERALTA MD Ot Z90.5 ACQUIRED ABSENCE OF KIDNEY 06/08/2018 AILYN PERALTA MD Ot Z90.79 ACQUIRED ABSENCE OF OTHER GENITAL ORGAN( 06/08/2018 AILYN PERALTA MD Ot Z91.048 OTHER NONMEDICINAL SUBSTANCE ALLERGY STA 06/10/2018 AILYN PERALTA MD Ot I10 ESSENTIAL (PRIMARY) HYPERTENSION 06/10/2018 AILYN PERALTA MD Ot R06.2 WHEEZING 06/10/2018 AILYN PERALTA MD Ot Z79.82 [facility] (CURRENT) USE OF ASPIRIN 06/10/2018 AILYN PERALTA MD Ot Z85.46 PERSONAL HISTORY OF MALIGNANT NEOPLASM O 06/10/2018 AILYN PERALTA MD Ot Z90.49 ACQUIRED ABSENCE OF OTHER SPECIFIED PART 06/10/2018 AILYN PERALTA MD Ot Z90.5 ACQUIRED ABSENCE OF KIDNEY 06/10/2018 AILYN PERALTA MD Ot Z90.79 ACQUIRED ABSENCE OF OTHER GENITAL ORGAN( 06/10/2018 AILYN PERALTA MD Ot Z91.048 OTHER NONMEDICINAL SUBSTANCE ALLERGY STA 06/10/2018 VINCENTNDTRACEY HALL DO S Ot E03.9 HYPOTHYROIDISM, UNSPECIFIED 06/10/2018 TRACEY BAILEY DO S Ot E78.5 HYPERLIPIDEMIA, UNSPECIFIED 06/10/2018 TRACEY BAILEY DO Ot I25.10 ATHSCL HEART DISEASE OF [place] CORONARY 06/10/2018 TRACEY BAILEY DO Ot R53.83 OTHER FATIGUE 06/10/2018 TRACEY BAILEY DO Ot R80.9 PROTEINURIA, UNSPECIFIED 06/10/2018 TRACEY BAILEY DO Ot Z90.5 ACQUIRED ABSENCE OF KIDNEY 06/10/2018 RON RICHARDSON Ot E78.2 MIXED HYPERLIPIDEMIA 06/10/2018 RON RICHARDSON Ot I10 ESSENTIAL (PRIMARY) HYPERTENSION 06/10/2018 RON RICHARDSON Ot I34.0 NONRHEUMATIC MITRAL (VALVE) INSUFFICIENC 06/10/2018 RON RICHARDSON Ot 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 06/10/2018 RON RICHARDSON Ot E78.2 MIXED HYPERLIPIDEMIA 06/10/2018 RON RICHARDSON Ot E78.5 HYPERLIPIDEMIA, UNSPECIFIED 06/10/2018 AYESHA MEJIA APRN Ot I65.23 OCCLUSION AND STENOSIS OF BILATERAL LAO 06/10/2018 AYESHA MEJIA APRN Ot R55 SYNCOPE AND COLLAPSE 06/10/2018 AYESHA MEJIA APRN Ot S90.31XA CONTUSION OF RIGHT FOOT, INITIAL ENCOUNT 06/10/2018 AYESHA MEJIA APRN Ot W19.XXXA UNSPECIFIED FALL, INITIAL ENCOUNTER 06/10/2018 HILARIO FUNETES MD Ot E78.2 MIXED HYPERLIPIDEMIA 06/10/2018 HILARIO FUENTES MD Ot I10 ESSENTIAL (PRIMARY) HYPERTENSION 06/10/2018 HILARIO FUENTES MD Ot I34.0 NONRHEUMATIC MITRAL (VALVE) INSUFFICIENC 06/10/2018 HILARIO FUENTES MD Ot R07.89 OTHER CHEST PAIN 06/10/2018 HILARIO FUENTES MD Ot R09.89 OTH SYMPTOMS AND SIGNS INVOLVING THE CIR 06/10/2018 KELLY JASMINE APRN Ot I25.10 ATHSCL HEART DISEASE OF [place] CORONARY 06/10/2018 JASMINE, KELLY L SHEET WRITER Ot J84.10 PULMONARY FIBROSIS, UNSPECIFIED 06/10/2018 KELLY JASMINE SHEET WRITER Ot J44.9 CHRONIC OBSTRUCTIVE PULMONARY DISEASE, U 06/10/2018 KELLY JASMINE SHEET WRITER Ot R06.00 DYSPNEA, UNSPECIFIED 06/10/2018 KELLY JASMINE SHEET WRITER Ot R06.2 WHEEZING 06/10/2018 LUPE HERRERA SHEET WRITER Ot E04.2 NONTOXIC MULTINODULAR GOITER 06/10/2018 LUPE HERRERA SHEET WRITER Ot E78.00 PURE HYPERCHOLESTEROLEMIA, UNSPECIFIED 06/10/2018 LUPE HERRERA SHEET WRITER Ot I10 ESSENTIAL (PRIMARY) HYPERTENSION 06/10/2018 LUPE HERRERA SHEET WRITER Ot J30.9 ALLERGIC RHINITIS, UNSPECIFIED 06/10/2018 LUPE HERRERA SHEET WRITER Ot J44.9 CHRONIC OBSTRUCTIVE PULMONARY DISEASE, U 06/10/2018 LUPE HERRERA SHEET WRITER Ot K21.9 GASTRO-ESOPHAGEAL REFLUX DISEASE WITHOUT 06/10/2018 HILARIO FUENTES MD Ot C61 MALIGNANT NEOPLASM OF PROSTATE 06/10/2018 HILARIO FUENTES MD Ot I10 ESSENTIAL (PRIMARY) HYPERTENSION 06/10/2018 HILARIO FUENTES MD Ot I34.0 NONRHEUMATIC MITRAL (VALVE) INSUFFICIENC 06/10/2018 HILARIO FUENTES MD Ot 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 06/10/2018 HILARIO FUENTES MD Ot R07.89 OTHER CHEST PAIN 06/10/2018 HILARIO FUENTES MD Ot R09.89 OTH SYMPTOMS AND SIGNS INVOLVING THE CIR 06/13/2018 AYESHA MEJIA SHEET WRITER Ot R06.00 DYSPNEA, UNSPECIFIED 06/19/2018 ORENDER DO, TRACEY S Ot E03.9 HYPOTHYROIDISM, UNSPECIFIED 06/19/2018 ORENDER DO, TRACEY S Ot E78.5 HYPERLIPIDEMIA, UNSPECIFIED 06/19/2018 ORENDER DO, TRACEY S Ot I25.10 ATHSCL HEART DISEASE OF [place] CORONARY 06/19/2018 ORENDER DO, TRACEY S Ot R53.83 OTHER FATIGUE 06/19/2018 ORENDER DO, TRACEY S Ot R80.9 PROTEINURIA, UNSPECIFIED 06/19/2018 TRACEY BAILEY DO Ot Z90.5 ACQUIRED ABSENCE OF KIDNEY 06/19/2018 RON RICHARDSON Ot E78.2 MIXED HYPERLIPIDEMIA 06/19/2018 RON RICHARDSON Ot I10 ESSENTIAL (PRIMARY) HYPERTENSION 06/19/2018 RON RICHARDSON Ot I34.0 NONRHEUMATIC MITRAL (VALVE) INSUFFICIENC 06/19/2018 ORN RICHARDSON Ot 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 06/19/2018 RON RICHARDSON Ot E78.2 MIXED HYPERLIPIDEMIA 06/19/2018 RON RICHARDSON Ot E78.5 HYPERLIPIDEMIA, UNSPECIFIED 06/19/2018 AYESHA MEJIA APRN Ot I65.23 OCCLUSION AND STENOSIS OF BILATERAL LAO 06/19/2018 AYESHA MEJIA APRN Ot R55 SYNCOPE AND COLLAPSE 06/19/2018 AYESHA MEJIA APRN Ot S90.31XA CONTUSION OF RIGHT FOOT, INITIAL ENCOUNT 06/19/2018 AYESHA MEJIA APRN Ot W19.XXXA UNSPECIFIED FALL, INITIAL ENCOUNTER 06/19/2018 HILARIO FUENTES MD Ot E78.2 MIXED HYPERLIPIDEMIA 06/19/2018 HILARIO FEUNTES MD Ot I10 ESSENTIAL (PRIMARY) HYPERTENSION 06/19/2018 HILARIO FUENTES MD Ot I34.0 NONRHEUMATIC MITRAL (VALVE) INSUFFICIENC 06/19/2018 HILARIO FUENTES MD Ot R07.89 OTHER CHEST PAIN 06/19/2018 HILARIO FUENTES MD Ot R09.89 OTH SYMPTOMS AND SIGNS INVOLVING THE CIR 06/19/2018 KELLY JASMINE SHEET WRITER Ot I25.10 ATHSCL HEART DISEASE OF [place] CORONARY 06/19/2018 KELLY JASMINE SHEET WRITER Ot J84.10 PULMONARY FIBROSIS, UNSPECIFIED 06/19/2018 KELLY JASMINE SHEET WRITER Ot J44.9 CHRONIC OBSTRUCTIVE PULMONARY DISEASE, U 06/19/2018 KELLY JASMINE SHEET WRITER Ot R06.00 DYSPNEA, UNSPECIFIED 06/19/2018 KELLY JASMINE SHEET WRITER Ot R06.2 WHEEZING 06/19/2018 LUPE HERRERA APRN Ot E04.2 NONTOXIC MULTINODULAR GOITER 06/19/2018 LUPE HERRERA Lizzy VALVERDE Ot E78.00 PURE HYPERCHOLESTEROLEMIA, UNSPECIFIED 06/19/2018 LUPE HERRERA APRN Ot I10 ESSENTIAL (PRIMARY) HYPERTENSION 06/19/2018 SAFIA HERRERAMarissa Ball APRN Ot J30.9 ALLERGIC RHINITIS, UNSPECIFIED 06/19/2018 JAVIER LUPE Ball APRN Ot J44.9 CHRONIC OBSTRUCTIVE PULMONARY DISEASE, U 06/19/2018 LUPE HERRERA APRN Ot K21.9 GASTRO-ESOPHAGEAL REFLUX DISEASE WITHOUT 06/19/2018 HILARIO FUENTES MD Ot C61 MALIGNANT NEOPLASM OF PROSTATE 06/19/2018 HILARIO FUENTES MD, Ot I10 ESSENTIAL (PRIMARY) HYPERTENSION 06/19/2018 HILARIO FUENTES MD Ot I34.0 NONRHEUMATIC MITRAL (VALVE) INSUFFICIENC 06/19/2018 HILARIO FUENTES MD Ot 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 06/19/2018 HILARIO FUENTES MD Ot R07.89 OTHER CHEST PAIN 06/19/2018 HILARIO FUENTES MD Ot R09.89 OTH SYMPTOMS AND SIGNS INVOLVING THE CIR 06/19/2018 RENÉE MEJIAYSKYA Dove APRN Ot R06.00 DYSPNEA, UNSPECIFIED Procedures There is no data. Results Test [...] indirect bilirubin measurement (mass/volume) 0.5 mg/ dL NR Lipid 1996 panel - 06/27/17 06:40 Serum or plasma triglyceride measurement (mass/volume) 139 mg/dL <150 Serum or plasma cholesterol measurement (mass/volume) 196 mg/dL < 200 Serum or plasma cholesterol in HDL measurement (mass/volume) 36 mg/ dL 40-60 Cholesterol in LDL [mass/volume] in serum or plasma by direct assay 145 mg/dL 1-129 Serum or plasma cholesterol in VLDL measurement (mass/volume) 28 mg/ dL 5-40 Complete blood count (CBC) with automated white blood cell (WBC) differential - 06/08/18 15:28 Blood leukocytes automated count (number/volume) 10.4 10*3/uL 4.3-11.0 Blood erythrocytes automated count (number/volume) 5.16 10*6/uL 4.35-5.85 Venous blood hemoglobin measurement (mass/volume) 14.6 g/dL 13.3-17.7 Blood hematocrit (volume fraction) 43 % 40-54 Automated erythrocyte mean corpuscular volume 83 [foz_us] 80-99 Automated erythrocyte mean corpuscular hemoglobin (mass per erythrocyte) 28 pg 25-34 Automated erythrocyte mean corpuscular hemoglobin concentration measurement ( mass/volume) 34 g/dL 32-36 Automated erythrocyte distribution width ratio 15.1 % 10.0-14.5 Automated blood platelet count (count/volume) 234 10*3/uL 130-400 Automated blood platelet mean volume measurement 12.2 [foz_us] 7.4-10.4 Automated blood neutrophils/100 leukocytes 67 % 42-75 Automated blood lymphocytes/100 leukocytes 19 % 12-44 Blood monocytes/100 leukocytes 11 % 0-12 Automated blood eosinophils/100 leukocytes 3 % 0-10 Automated blood basophils/100 leukocytes 0 % 0-10 Blood neutrophils automated count (number/volume) 7.0 10*3 1.8-7.8 Blood lymphocytes automated count (number/volume) 2.0 10*3 1.0-4.0 Blood monocytes automated count (number/volume) 1.1 10*3 0.0-1.0 Automated eosinophil count 0.3 10*3/uL 0.0-0.3 Automated blood basophil count (count/volume) 0.0 10*3/uL 0.0-0.1 Comprehensive metabolic panel - 06/08/18 15:28 Serum or plasma sodium measurement (moles/volume) 141 mmol/L 135-145 Serum or plasma potassium measurement (moles/volume) 3.9 mmol/L 3.6-5.0 Serum or plasma chloride measurement (moles/volume) 111 mmol/L 98-107 Carbon dioxide 19 mmol/L 21-32 Serum or plasma anion gap determination (moles/volume) 11 mmol/L 5-14 Serum or plasma urea nitrogen measurement (mass/volume) 22 mg/dL 7-18 Serum or plasma creatinine measurement (mass/volume) 1.62 mg/dL 0.60-1.30 Serum or plasma urea nitrogen/creatinine mass ratio 14 NRG Serum or plasma creatinine measurement with calculation of estimated glomerular filtration rate 42 NRG Serum or plasma glucose measurement (mass/volume) 115 mg/dL 70-105 Serum or plasma calcium measurement (mass/volume) 9.3 mg/dL 8.5-10.1 Serum or plasma total bilirubin measurement (mass/volume) 0.5 mg/dL 0.1-1.0 Serum or plasma alkaline phosphatase measurement (enzymatic activity/volume) 91 U/L 40-136 Serum or plasma aspartate aminotransferase measurement (enzymatic activity/ volume) 19 U/L 5-34 Serum or plasma alanine aminotransferase measurement (enzymatic activity/volume ) 25 U/L 0-55 Serum or plasma protein measurement (mass/volume) 7.1 g/dL 6.4-8.2 Serum or plasma albumin measurement (mass/volume) 3.9 g/dL 3.2-4.5 CALCIUM CORRECTED 9.4 mg/dL 8.5-10.1 Serum or plasma troponin i.cardiac measurement (mass/volume) - 06/08/18 15:28 Serum or plasma troponin i.cardiac measurement (mass/volume) < ng/ mL <0.30 Fibrin D-dimer FEU measurement in platelet poor plasma (mass/volume) - 15:28 Fibrin D-dimer FEU measurement in platelet poor plasma (mass/volume) 0.95 ug/mL 0.00-0.49 Serum or plasma lithium measurement (moles/volume) - 06/08/18 15:28 BNP level 138.1 pg/mL <100.0 Encounters ACCT No. Visit Date/Time Discharge Status Pt. Type Provider Facility Loc./Unit Complaint [id number] 06/20/2018 12:19:00 06/20/2018 23:59:59 CLS Outpatient LENNIE GAVIRIA, JO ANN Nye [facility] RAD NODULES [id number] 06/11/2018 13:38:00 06/11/2018 23:59:59 CLS Outpatient AYESHA MEJIA SHEET WRITER [facility] CARD DYSPNEA [id number] 06/08/2018 14:55:00 06/08/2018 18:22:00 DIS Emergency FABIAN GAVIRIA, AILYN Jones [facility] ER SOB/SENT FROM URGENT CARE [id number] 03/28/2018 06:59:00 03/28/2018 23:59:59 CLS Outpatient GINA GAVIRIA, HILARIO Foreman [facility] LAB R09.89,R07.89,I10 [id number] 02/03/2018 08:04:00 02/03/2018 23:59:59 CLS Outpatient LUPE HERRERA SHEET WRITER [facility] RAD NONTOXIC GOITER, ALLERGIC RHINITIS [id number] 01/29/2018 09:56:00 01/29/2018 23:59:59 CLS Outpatient KELLY JASMINE SHEET WRITER [facility] RAD MULTIPLE SUREKHA NODULES, WHEEZING,COUGH,FATIGUE [id number] 01/24/2018 16:07:00 01/24/2018 23:59:59 CLS Outpatient KELLY JASMINE SHEET WRITER [facility] RT DYSPNEA,WHEEZING, COPD CHANGES ON EXAM [id number] 11/29/2017 19:58:00 11/30/2017 04:47:00 DIS Outpatient HILARIO FUENTES MD [facility] SLEEP OBSTRUCTIVE SLEEP APNEA G47.33 [id number] 11/22/2017 12:08:00 11/22/2017 23:59:59 CLS Outpatient HILARIO FUENTES MD [facility] CARD R07.89 CHEST PAIN SYNDROME [id number] 10/30/2017 14:39:00 10/30/2017 23:59:59 CLS Outpatient AYESHA MEJIA SHEET WRITER [facility] RAD SYNCOPE X 2 AND HURT RIGHT FOOT [id number] 09/09/2017 07:30:00 09/09/2017 23:59:59 CLS Outpatient RON RICHARDSON [facility] LAB E78.2 [id number] 06/27/2017 06:26:00 06/27/2017 23:59:59 CLS Outpatient RON RICHARDSON [facility] LAB HYPERLIPIDEMIA [id number] 06/14/2017 09:18:00 06/14/2017 13:12:00 DIS Outpatient SEAN KITCHEN MD [facility] ENDO FAMILY HX COLON CA [id number] 06/10/2017 05:39:00 06/10/2017 13:31:00 DIS Outpatient SEAN KITCHEN MD [facility] PREOP COLO [id number] 03/13/2017 06:51:00 03/13/2017 23:59:59 CLS Outpatient RON RICHARDSON [facility] LAB I10 E78.2 I44.4 [id number] 10/16/2016 13:52:00 10/16/2016 23:59:59 CLS Outpatient ORENDER DOYUDITRACEY S [facility] RAD R80.9 [id number] 10/05/2016 07:42:00 10/05/2016 23:59:59 CLS Outpatient ORENDER DO TRACEY S [facility] LAB HYPERLIPIDEMIA,HTN, FATIGUE [id number] 11/23/2015 08:06:00 11/23/2015 23:59:59 CLS Outpatient HILARIO FUENTES MD [facility] CARD [id number] 11/21/2015 14:37:00 11/21/2015 23:59:59 CLS Outpatient HILARIO FUENTES MD [facility] CARD [id number] 05/03/2015 08:24:00 05/03/2015 23:59:59 CLS Outpatient HILARIO FUENTES MD [facility] LAB [id number] 04/14/2015 08:01:00 04/14/2015 23:59:59 CLS Outpatient CINTHIA VALDEZ MD [facility] REHAB [id number] 04/06/2015 16:15:00 04/06/2015 00:01:00 DIS Outpatient CINTHIA VALDEZ MD [facility] REHAB [id number] 01/26/2015 12:15:00 01/26/2015 23:59:59 CLS Preadmit AUBREY AGUILAR DO [facility] REHAB [id number] 01/07/2015 08:39:00 01/07/2015 23:59:59 CLS Outpatient [facility] [facility] [id number] 01/03/2015 16:53:00 01/03/2015 23:59:59 CLS Outpatient CINTHIA VALDEZ MD [facility] RAD [id number] 12/24/2014 08:19:00 12/24/2014 23:59:59 CLS Outpatient JEFF AUBREY [facility] RAD [id number] 11/13/2013 09:08:00 11/13/2013 23:59:59 CLS Outpatient TRACEY BAILEY DO [facility] LAB [id number] 11/13/2013 09:04:00 11/13/2013 23:59:59 CLS Outpatient HILARIO FUENTES MD [facility] CARD [id number] 07/18/2012 05:59:00 Document Registration [id number] 07/11/2012 09:12:00 Document Registration [id number] 07/03/2012 15:28:00 Document Registration [id number] 06/20/2012 10:28:00 Document Registration 01/22/16 06/22/2018 06:13:29 06/22/2018 23:59:59 CLS Outpatient Tracey Bailey [email or web address] 04/14/2015 08:01:35 ACT Document Registration
[2018-06-30] MEDS ORDERED: cloNIDine 0.1 MG (CATAPRES) TAB PO ONE ×2 (16:45→17:45)
--- NOTE | 2018-06-30 16:48 | ED EENT ---
History of Present Illness General Chief Complaint: Dental Problems/Pain Stated Complaint: HIGH BP,DENTAL ISSUE Nursing Triage Note: PT STATES THAT HE IS HERE DUE TO HIS TOOTH PAIN THAT IS CAUSING HIS RIGHT EAR TO HURT. PTS STATES THAT SHE MADE HIM COME TO THE ED FOR HIGH BLOOD PRESSURE. SON AND PT STATE THAT THEY WENT TO [facility] TO TAKE BLOOD PRESSURE AND IT WAS 109/70'S. PTS STATES THAT HIS PRESSURE WAS WELL OVER 200 SYSTOLIC AND HAD EMERSON CHEEKS. PT STILL STATES HE IS HERE DUE TO HIS TOOTH PAIN. Source: patient Exam Limitations: no limitations History of Present Illness Date Seen by Provider: Jun 30, 2018 Time Seen by Provider: 16:43 Initial Comments To ER with reports of right ear and right jaw pain. This is been ongoing for a few weeks. He was seen here at the onset of this for the ear pain and given prednisone and amoxicillin. He followed up with [facility] and was told that his ear was fine and that his pain may be coming from his tooth. He doesn' t fact have a tooth on the bottom right with a cap on it but does have a mild headache. No fevers or chills. Today his looked at him and noticed him to be flushed and suspected high blood pressure. She took him to [facility] and checked his blood pressure and found it to be 211/107. He has no headache, only right ear pain and right jaw pain. He does take metoprolol 50 mg daily in the evenings but has not yet had that Timing/Duration: abrupt Severity: moderate Location: ear (R) Prearrival Treatment: no prearrival treatment Allergies and Home Medications Allergies Coded Allergies: Adhesive Bandage (Unverified Allergy, Unknown, SORES, 06/10/17) Home Medications Amlodipine Besylate 10 Mg Tablet, 10 MG PO HS, (Reported) Amoxicillin/Potassium Clav 1 Each Tablet, 1 EACH PO BID Prescribed by: RITA SIDDIQUI on 06/30/18 [id number] Aspirin 81 Mg Tab.chew, 81 MG PO DAILY, (Reported) Metoprolol Tartrate 50 Mg Tablet, 50 MG PO DAILY, (Reported) Patient Home Medication List Home Medication List Reviewed: Yes Review of Systems Review of Systems Constitutional: see HPI Eyes: No Symptoms Reported Ears: See HPI, Pain Nose: no symptoms reported Mouth: see HPI, pain; denies swelling Throat: no symptoms reported Respiratory: no symptoms reported Cardiovascular: no symptoms reported Musculoskeletal: no symptoms reported Past Uqhuzkj-Mznpmk-Tviczv Hx Patient Social History Alcohol Use: Denies Use Recreational Drug Use: No Smoking Status: Never a Smoker 2nd Hand Smoke Exposure: No Recent Foreign Travel: No Contact w/Someone Who Travel: No Recent Infectious Disease Expo: No Recent Hopitalizations: No Physical Abuse: No Sexual Abuse: No Immunizations Up To Date Tetanus Booster (TDap): Unknown Date of Pneumonia Vaccine: Mar 11, 2017 Date of Influenza Vaccine: Apr 15, 2017 Seasonal Allergies Seasonal Allergies: No Past Medical History Surgeries: Yes (PROSTATECTOMY, L NEPHRECTOMY, CATARACTS) Appendectomy Respiratory: No Currently Using CPAP: No Currently Using BIPAP: No Cardiac: Yes (HEART CATH 2015) Hypertension Neurological: No Reproductive Disorders: No Sexually Transmitted Disease: No HIV/AIDS: No Genitourinary: Yes (RENAL MASS- NON MALIGNANT- LEFT. REMOVED) Gastrointestinal: No Musculoskeletal: No Endocrine: No Loss of Vision: Denies Hearing Impairment: Denies Cancer: Yes Prostate What Type of Treatment Did You: Surgical Intervention Psychosocial: No Integumentary: No Blood Disorders: No Adverse Reaction/Blood Tranf: No (N/A) Physical Exam Vital Signs Vital Signs - First Documented 06/30/18 16:24 Temp 98.0 Pulse 86 Resp 12 B/P (MAP) 176/90 (118) Pulse Ox 95 Height, Weight, BMI Height: 6'2.00" Weight: 270lbs. 0.7oz. 122.624352na; 29.3 BMI Method:Stated General Appearance: WD/WN, no apparent distress Eyes: bilateral eye normal inspection, bilateral eye PERRL, bilateral eye EOMI Ears: right ear other; left ear TM normal (the right tympanic membrane has the appearance of a healing perforated tympanic membrane possibly developing a secondary cholesteatoma.); bilateral ear auricle normal, bilateral ear canal normal Mouth/Throat: normal mouth inspection, pharynx normal Neck: non-tender, full range of motion Respiratory: no respiratory distress, no accessory muscle use Gastrointestinal: normal bowel sounds, non tender Neurologic/Psychiatric: alert, normal mood/affect Skin: normal color, warm/dry Progress/Results/Core Measures Results/Orders My Orders Orders - RITA SIDDIQUI APRN Clonidine Tablet (Catapres Tablet) (06/30/18 16:45) Clonidine Tablet (Catapres Tablet) (06/30/18 17:45) Rx-Amoxicillin/Clav Tab (Rx-Augmentin Ta (06/30/18 17:39) Medications Given in ED Vital Signs/I&O Blood Pressure Mean: 118 Departure Impression Primary Impression: Hypertension Qualified Codes: I10 - Essential (primary) hypertension Additional Impression: Pain, dental Disposition: 01 HOME, SELF-CARE Condition: Stable Departure-Patient Inst. Decision time for Depature: 16:47 Referrals: MAUREEN ROBLES DO (PCP/Family) Primary Care Physician Patient Instructions: Dental Pain (DC), High Blood Pressure (DC) Add. Discharge Instructions: 1. Go home and take your regular dose of metoprolol 2. Return to ER for any concerns 3. All discharge instructions reviewed with patient and/or family. Voiced understanding. Scripts Amoxicillin/Potassium Clav (Augmentin 875-125 Tablet) 1 Each Tablet 1 EACH PO BID, #14 TAB Prov: RITA SIDDIQUI APRN 06/30/18 Images Mouth/Nose 1 - RITA SIDDIQUI APRN Jun 30, 2018 16:48
[2018-06-30] MEDS ORDERED: RX-AMOX/CLAV. (AUGMENTIN) 500MG TAB PPK#2 PO STA (17:39)
[2018-06-30] MEDS ORDERED: AMOX-358 PO (17:39)
[2018-06-30 17:46] VITALS: BP 176/90
== END 2018-06-30 17:46 | disposition home or self-care (01) ==
LOC: EDUNIT# 15:38 → ER 15:39
DX: I10 Essential (primary) hypertension (principal); K08.89 Other specified disorders of teeth and supporting structures; Z85.46 Personal history of malignant neoplasm of prostate; Z90.5 Acquired absence of kidney; Z79.82 Long term (current) use of aspirin; Z91.048 Other nonmedicinal substance allergy status; Z90.49 Acquired absence of other specified parts of digestive tract
CPT/HCPCS: 99283

== ENCOUNTER → 2018-07-21 | Outpatient (CLI) | payer MEDICARE, OTHER ==
[~2018-07-21] MED LIST changes: +AMOX-358 PO
[2018-07-21 10:39] LABS: BILIRUBIN,TOTAL 0.7 MG/DL (0.1-1.0); CALCIUM 9.2 MG/DL (8.5-10.1); CREATININE SERUM 1.94 MG/DL (0.60-1.30); POTASSIUM 4.5 MMOL/L (3.6-5.0); TOTAL PROTEIN 6.9 GM/DL (6.4-8.2)
== END ==
LOC: LAB 10:07
PROVIDERS: ATTEND Physician Assistant
DX: E78.2 Mixed hyperlipidemia (principal)
CPT/HCPCS: 36415; 80053; 80061

== ENCOUNTER → 2018-07-24 | Outpatient (CLI) | payer MEDICARE, OTHER ==
--- NOTE | 2018-07-24 15:54 | Diagnostic Imaging Report ---
PROCEDURE: CT chest without contrast. TECHNIQUE: Multiple contiguous axial images were obtained through the chest without the use of intravenous contrast. INDICATION: Pneumonia, scar. FINDINGS: The previous CT chest exam performed on 01/29/2018 noted vague areas of increased density in each lung base. These findings were felt to be more likely due to chronic pulmonary disease than to an acute cardiopulmonary abnormality. On this study, however, the lung bases do seem better aerated. This would suggest that there was an element of mild acute/subacute pneumonia/atelectasis superimposed on the chronic pulmonary changes. There are still a few coarse interstitial densities in the lower lobes, which are most likely chronic in nature. The overall appearance of the lungs is otherwise no different. There is no new area of pneumonia or atelectasis identified, and there is no pleural effusion. The calcified granuloma in the right lung base seen previously is again evident and no different. The heart is stable in size. Coronary artery calcifications are again noted. The aorta is not abnormally dilated. There is no obvious mediastinal or hilar adenopathy. The calcified subcarinal and right hilar nodes seen previously are again evident. The calcified nodule in the left lobe of the thyroid seen previously is also again visualized. The thyroid ultrasound exam performed on 01/29/2018 showed nodules in each lobe, particularly on the left. The thyroid gland appeared stable on the subsequent thyroid ultrasound exam of 06/20/2018. The sections through the upper abdomen failed to show any sign of an acute abnormality. As noted on the prior exam, the left kidney is surgically absent. The bone windows show no evidence for a fracture or for a destructive lesion. IMPRESSION: 1. The appearance of the chest has improved since the prior exam as both lung bases do seem better aerated. This would indicate that there was an element of acute/subacute pneumonia present involving each lower lobe on the prior study. 2. There is no acute cardiopulmonary abnormality identified on this study. 3. The thyroid gland appears stable. Dictated by: Dictated on workstation # [id number]
== END ==
LOC: RAD 12:41
PROVIDERS: ATTEND Nurse Practitioner Family
DX: J18.9 Pneumonia, unspecified organism (principal); E78.2 Mixed hyperlipidemia; G47.33 Obstructive sleep apnea (adult) (pediatric); G47.10 Hypersomnia, unspecified; J98.4 Other disorders of lung
CPT/HCPCS: 71250

== ENCOUNTER 2018-09-01 19:52 | Outpatient (CLI) | payer MEDICARE, OTHER ==
[~2018-09-01 19:52] MED LIST changes: -AMLO10TA6 PO; +AMLO10TA7 PO
== END 2018-09-02 06:34 | disposition home or self-care (01) ==
LOC: SLEEP 19:52
PROVIDERS: ATTEND Nurse Practitioner Family
DX: G47.33 Obstructive sleep apnea (adult) (pediatric) (principal); G47.10 Hypersomnia, unspecified; R06.00 Dyspnea, unspecified; J98.4 Other disorders of lung
CPT/HCPCS: 95811

== ENCOUNTER 2018-09-22 08:03 | Outpatient (RCR) | payer MEDICARE, OTHER | END 2018-12-21 | disposition home or self-care (01) | LOC: RT 08:03 | PROVIDERS: ATTEND Nurse Practitioner Family | DX: R06.00 Dyspnea, unspecified (principal); R91.8 Other nonspecific abnormal finding of lung field; J98.4 Other disorders of lung; G47.33 Obstructive sleep apnea (adult) (pediatric); G47.10 Hypersomnia, unspecified | CPT/HCPCS: 99211 ==

== ENCOUNTER → 2020-03-10 | Outpatient (CLI) | payer OTHER, MEDICARE | LOC: GIR 16:29 | PROVIDERS: ATTEND Internal Medicine | DX: R06.02 Shortness of breath (principal) | CPT/HCPCS: 84145 ==

== ENCOUNTER → 2020-05-06 | Outpatient (CLI) | payer MEDICARE, OTHER ==
[~2020-05-06] MED LIST changes: +AMLO-251 PO; -AMLO10TA7 PO
--- NOTE | 2020-05-06 16:12 | Diagnostic Imaging Report ---
PROCEDURE: US Venous Lower Ext [place]. TECHNIQUE: Multiple real-time grayscale images were obtained over the lower extremities in various projections, bilaterally. Additional duplex Doppler and color Doppler images were also obtained. INDICATION: Edema in the bilateral lower extremities with a positive D-dimer. Pain in the lower extremities. COMPARISON: 06/08/2018 FINDINGS: The bilateral common femoral vein, femoral vein, deep femoral vein, and popliteal vein are normal in appearance. These vessels show normal compressibility, color flow and doppler augmentation. The visualized deep calf veins demonstrate no distinct intraluminal thrombus. IMPRESSION: 1. No sonographic evidence of deep venous thrombosis in the bilateral lower extremities. Dictated by: Dictated on workstation # [id number]
== END ==
LOC: RAD 15:04
PROVIDERS: ATTEND Nurse Practitioner Family
DX: R22.43 Localized swelling, mass and lump, lower limb, bilateral (principal)
CPT/HCPCS: 93970

== ENCOUNTER → 2023-06-12 | Outpatient (CLI) | payer MEDICARE, OTHER ==
--- NOTE | 2023-06-12 16:32 | Diagnostic Imaging Report ---
PROCEDURE: US Renal Bilateral. TECHNIQUE: Multiple real-time grayscale images were obtained over the kidneys in various projections bilaterally. INDICATION: Urge incontinence COMPARISON: None. FINDINGS: Left kidney is surgically absent. Right kidney has a normal sonographic appearance and measures 11.1 cm in length. Cortical thickness and cortical medullary differentiation are maintained. There is no evidence of calculi, focal mass or hydronephrosis. Limited views of the pelvis demonstrate mildly distended urinary bladder. No large intraluminal masses or calculi are present. Prevoid bladder volume measures 94 mm. Post void residual measures 61 mm. There is no ascites. IMPRESSION: 1. Surgically absent left kidney. 2. Unremarkable sonographic appearance of the right kidney. 3. Pre and post void residual as above. Dictated by: Dictated on workstation # [id number]
== END ==
LOC: RAD 13:15
PROVIDERS: ATTEND Specialist
DX: N39.41 Urge incontinence (principal); Z90.5 Acquired absence of kidney
CPT/HCPCS: 76770